=== PATIENT | male | born 1970 | race Caucasian/White ===

== ENCOUNTER 2019-01-18 10:09 | Inpatient (IN) | payer OTHER ==
[2019-01-18 10:34] VITALS: BMI 22.3
--- NOTE | 2019-01-18 10:44 | HP ---
COWS - Scale Resting Pulse: 1= [place] 81-100 Sweatin= Chills/Flushing Restless Observation: 1= Difficult to Sit Still Pupil Size: 1= Pupils >than Normal Bone or Joint Aches: 1= Mild Discomfort Runny Nose/ Eye Tearin= Runny Nose/Eyes GI Upset > 30mins: 2= Nausea/Diarrhea Tremor Observation: 1= Tremor [place], Not Seen Yawning Observation: 1= 1-2x During Session Anxiety or Irritability: 4=Extreme Anxiety Goose Flesh Skin: 3=Piloerection COWS Score: 18 CIWA Score Nausea/Vomitin Muscle Tremors: 4-Moderate,w/Arms Extend Anxiety: 2 Agitation: 4-Moderately Restless Paroxysmal Sweats: 3 Orientation: 0-Oriented Tacttile Disturbances: 3-Moderate Itch/Numb/Burn Auditory Disturbances: 0-None Visual Disturbances: 0-None Headache: 0-None Present CIWA-Ar Total Score: 19 - Admission Criteria OASAS Guidelines: Admission for Medically Managed Detox: Requires at least one of the followin. CIWA greater than 12 2. Seizures within the past 24 hours 3. Delirium tremens within the past 24 hours 4. Hallucinations within the past 24 hours 5. Acute intervention needed for co occurring medical disorder 6. Acute intervention needed for co occurring psychiatric disorder 7. Severe withdrawal that cannot be handled at a lower level of care (continued vomiting, continued diarrhea, abnormal vital signs) requiring intravenous medication and/or fluids 8. Admitting History and Physical - Admission Chief Complaint: "I'm here to live a better life than what I've been living." History of Present Illness: 48 year old male with alcohol dependence and opioid dependence with withdrawals. Patient denies blackout or seizures from withdrawals. Patient is drinking 1 6 pack of beer daily for past 3-6 months, last drank yesterday night. Patient uses 3-4 bags of heroin daily, last used yesterday night Patient moved to [facility] 1 year ago after divorce from in [place] and 3-6 months ago he started abusing drugs. Patient smokes 2ppd since the age 18, last smoked today. Patient occasionally uses marijuana and K2, last used K2 yesterday; last used marijuana 2 weeks ago. PMH: S/P Kidney cancer with Right nephrectomy and Left partial nephrectomy Psurg: Nephrectomy Psych: None, except for PTSD from [place] Lives in [place] housing here in [facility]. No legal issues pending. - Past Surgical History Additional Past Surgical History: nephrectomies see HPI. - Advance Directives Advance Directives: Yes: Living Will, Organ Donor. No: Health Care Proxy, DNR - Smoking History Smoking history: Current every day smoker Have you smoked in the past 12 months: Yes Aproximately how many cigarettes per day: 20 - Alcohol/Substance Use Hx Alcohol Use: Yes (1 6 pack beer daily) Number of Drinks Daily: 10 History of Substance Use: reports: Heroin, Marijuana Date of Last Use: 01/17/19 (marijuana a week ago) - Social History Usual Living Arrangement: Yes: Alone Do you think of yourself as: Straight/Heterosexual ADL: Independent Occupation: not employed at this time History of Recent Travel: No Admission [facility] - HPI Chief Complaint: "I'm here to live a better life than what I've been living." Allergies/Adverse Reactions: Allergies Allergy/AdvReac Type Severity Reaction Status Date / Time No Known Allergies Allergy Verified 01/18/19 10:31 History of Present Illness: 48 year old male with alcohol dependence and opioid dependence with withdrawals. Patient denies blackout or seizures from withdrawals. Patient is drinking 1 6 pack of beer daily for past 3-6 months, last drank yesterday night. Patient uses 3-4 bags of heroin daily, last used yesterday night Patient moved to [facility] 1 year ago after divorce from in [place] and 3-6 months ago he started abusing drugs. Patient smokes 2ppd since the age 18, last smoked today. Patient occasionally uses marijuana and K2, last used K2 yesterday; last used marijuana 2 weeks ago. PMH: S/P Kidney cancer with Right nephrectomy and Left partial nephrectomy Psurg: Nephrectomy Psych: None except for PTSD from [place] here in [facility]. No legal issues pending. - Ebola screening Have you traveled outside of the country in the last 21 days: No Have you had contact with anyone from an Ebola affected area: No Have you been sick,other than usual withdrawal symptoms: No Do you have a fever: No - Review of Systems Constitutional: Diaphoresis, Unintentional Wgt. Loss EENT: reports: Nose Congestion Respiratory: reports: No Symptoms reported Cardiac: reports: No Symptoms Reported, Chest Pain GI: reports: Nausea, Indigestion : reports: No Symptoms Reported Musculoskeletal: reports: No Symptoms Reported Integumentary: reports: No Symptoms Reported Neuro: reports: No Symptoms reported Endocrine: reports: No Symptoms Reported Hematology: reports: No Symptoms Reported Psychiatric: reports: Agitated, Anxious Other Systems: Reviewed and Negative Patient History - Patient Medical History Hx Anemia: No Hx Asthma: No Hx Chronic Obstructive Pulmonary Disease (COPD): No Hx Cancer: Yes (renal adenocarcinoma) Hx Cardiac Disorders: No Hx Congestive Heart Failure: No Hx Hypertension: No Hx Hypercholesterolemia: No Hx Pacemaker: No HX Cerebrovascular Accident: No Hx Seizures: No Hx Dementia: No Hx Diabetes: No Hx Gastrointestinal Disorders: No Hx Liver Disease: No (negative for HCV) Hx Genitourinary Disorders: No Hx Sexually Transmitted Disorders: No Hx Renal Disease (ESRD): Yes (poor function due to nephrectomies and partial left kidney remaining) Hx Thyroid Disease: No Hx Human Immunodeficiency Virus (HIV): No (negative last week) Hx Hepatitis C: No (last tested 1 year ago) Hx Depression: No Hx Suicide Attempt: No Hx Bipolar Disorder: No Hx Schizophrenia: No - Patient Surgical History Past Surgical History: Yes - PPD History Previous Implant?: No Implanted On Prior R Admission?: No PPD to be Administered?: Yes - Smoking Cessation Smoking history: Current every day smoker Have you smoked in the past 12 months: Yes Aproximately how many cigarettes per day: 20 Hx Chewing Tobacco Use: No Initiated information on smoking cessation: Yes 'Breaking Loose' booklet given: 01/18/19 - Substances abused Heroin Substance route: Inhalation Frequency: Daily Amount used: 5 BAGS Age of first use: 47 Date of last use: 01/17/19 Alcohol Substance route: Oral Frequency: Daily Amount used: 12 CANS OF BEER Age of first use: 13 Date of last use: 01/17/19 Admission Physical Exam BHS - Vital Signs Vital Signs: Vital Signs - 24 hr 01/18/19 10:31 Temperature 98.1 F Pulse Rate 82 Respiratory 20 Rate Blood Pressure 136/74 - Physical General Appearance: Yes: Moderate Distress HEENTM: Yes: EOMI, Hearing grossly Normal, Normocephalic, Normal Voice, OC, Pharynx Normal, Tm's normal Respiratory: Yes: Chest Non-Tender, Lungs Clear, Normal Breath Sounds, No Respiratory Distress, No Accessory Muscle Use Neck: Yes: No masses,lesions,Nodules, Supple, Trachea in good position Breast: Yes: Within Normal Limits Cardiology: Yes: Regular Rhythm, Regular Rate, S1, S2 Abdominal: Yes: Normal Bowel Sounds, Non Tender, Flat, Soft Genitourinary: Yes: Within Normal Limits Back: Yes: Normal Inspection Musculoskeletal: Yes: full range of Motion, Gait Steady, Pelvis Stable Extremities: Yes: Normal Capillary Refill, Normal Inspection, Normal Range of Motion, Non-Tender Neurological: Yes: director credit risk II-XII NML intact, Fully Oriented, Alert, Motor Strength 5/5, Normal Response, Depressed Affect Integumentary: Yes: Normal Color, Warm Lymphatic: Yes: Within Normal Limits - Diagnostic (1) PTSD (post-traumatic stress disorder) Current Visit: Yes Status: Acute (2) H/O renal cell cancer Current Visit: Yes Status: Acute Screened but not Admitted - Documentation of Visit Screened but not Admitted: No Inpatient Rehab Admission - Rehab Decision to Admit Inpatient rehab admission?: No
[2019-01-18] MEDS ORDERED: ACETAMINOPHEN 325 MG TABLET (FP) PO PRN ×2 (10:55)
[2019-01-18] MEDS ORDERED: METHOCARBAMOL 500 MG TABLET PO PRN (10:55)
[2019-01-18] MEDS ORDERED: MAGNESIUM CITRATE 300 ML BOTTLE PO PRN (10:55)
[2019-01-18] MEDS ORDERED: MAG HYDROX/AL HYDROX/SIMETH 30 ML UNIT-DOSE CUP PO PRN (10:55)
[2019-01-18] MEDS ORDERED: hydrOXYzine PAMOATE 25 MG CAPSULE (FP) PO PRN (10:55)
[2019-01-18] MEDS ORDERED: MAGNESIUM HYDROX 2400MG/30ML ORAL SUSPENSION 30 ML CUP PO PRN (10:55)
[2019-01-18] MEDS ORDERED: MELATONIN 5 MG TABLETS PO PRN (10:55)
[2019-01-18] MEDS ORDERED: cloNIDine HCL 0.1 MG TABLET PO PRN (10:55)
[2019-01-18] MEDS ORDERED: chlordiazePOXIDE HCL 25 MG CAPSULE PO PRN (10:55)
[2019-01-18] MEDS ORDERED: BISMUTH SUBSALICYLATE 262 MG/15 ML BTL PO PRN (10:55)
[2019-01-18] MEDS ORDERED: MENTHOL/PHENOL 1 EACH UD MM PRN (10:55)
[2019-01-18] MEDS ORDERED: IBUPROFEN 400 MG TABLET (FP) PO PRN (10:55)
[2019-01-18] MEDS ORDERED: METHADONE HCL 10 MG TABLET (FOR DETOX USE ONLY) PO ONE (11:30)
[2019-01-18] MEDS: chlordiazePOXIDE HCL 25 MG CAPSULE PO SCH ×3 (12:00→22:07)
[2019-01-18 13:58] LABS: HEMATOCRIT 40.5 % (35.4-49); HEMOGLOBIN 13.6 GM/dL (11.7-16.9); MCH 30.1 pg (25.7-33.7); MCHC 33.5 g/dl (32.0-35.9); MEAN CELL VOLUME 89.9 fl (80-96); MEAN PLT VOLUME 8.9 fl (7.5-11.1); PLATELET COUNT 199 K/MM3 (134-434); RDW 13.9 % (11.9-15.9); WHITE BLOOD COUNT 5.5 K/mm3 (4.0-10.0)
[2019-01-18 14:21] LABS: ALBUMIN 3.9 g/dl (3.4-5.0); BILIRUBIN,TOTAL 0.3 mg/dL (0.2-1); BLOOD UREA NITROGEN 19.5 mg/dL (7-18); CALCIUM 9.2 mg/dL (8.5-10.1); CREATININE 1.2 mg/dL (0.55-1.3); POTASSIUM 3.5 mmol/L (3.5-5.1); TOT PROT 6.8 g/dl (6.4-8.2)
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
[2019-01-18] MEDS: NICOTINE POLACRILEX 4 MG GUM BUC PRN (19:21)
[2019-01-18] MEDS: QUEtiapine FUMARATE 300 MG TABLET PO SCH (22:06)
[2019-01-18] MEDS: THIAMINE HCL 100 MG TABLET (FP) PO SCH (22:06)
[2019-01-19] MEDS: chlordiazePOXIDE HCL 25 MG CAPSULE PO SCH ×4 (06:24→22:05)
[2019-01-19] MEDS ORDERED: METHADONE HCL 10 MG TABLET (FOR DETOX USE ONLY) ONE (09:10)
[2019-01-19] MEDS ORDERED: METHADONE HCL 5 MG TABLET (FOR DETOX USE ONLY) ONE (09:10)
[2019-01-19] MEDS ORDERED: METHADONE (DETOX) 20 MG, METHADONE (DETOX) 5 MG PO ONE (10:00)
[2019-01-19] MEDS: NICOTINE 14 MG/24 HOURS TOPICAL PATCH TD SCH (10:37)
[2019-01-19] MEDS: NICOTINE POLACRILEX 4 MG GUM BUC PRN ×4 (10:37→20:49)
[2019-01-19] MEDS: PRENATAL VITAMINS W/ FOLIC ACID TABLET (FP) PO SCH (10:37)
[2019-01-19] MEDS ORDERED: FLU VACCINE QUAD 60 MCG/0.5 ML (MDV 19-20) IM ONE (12:00)
--- NOTE | 2019-01-19 14:19 | PN ---
[facility] CIWA - CIWA Score Nausea/Vomitin-No Nausea/No Vomiting Muscle Tremors: 3 Anxiety: 4-Mod. Anxious/Guarded Agitation: 4-Moderately Restless Paroxysmal Sweats: 3 Orientation: 0-Oriented Tacttile Disturbances: 0-None Auditory Disturbances: 0-None Visual Disturbances: 0-None Headache: 0-None Present CIWA-Ar Total Score: 14 S COWS - Scale Resting Pulse: 0= ID 80 or Below Sweatin= Chills/Flushing Restless Observation: 1= Difficult to Sit Still Pupil Size: 0= Normal to Room Light Bone or Joint Aches: 2= Severe Diffuse Aches Runny Nose/ Eye Tearin= Runny Nose/Eyes GI Upset > 30mins: 0= None Tremor Observation of Outstretched Hands: 2= Slight Tremor Visible Yawning Observation: 2= >3x During Session Anxiety or Irritability: 2=Irritable/Anxious Goose Flesh Skin: 0=Smooth Skin COWS Score: 12 S Progress Note (SOAP) Subjective: agitation restless anxiety sweats irritable interrupted sleep Objective: 01/19/19 14:18 Vital Signs Temperature 97.7 F 01/19/19 06:39 Pulse Rate 61 01/19/19 06:39 Respiratory Rate 18 01/19/19 06:39 Blood Pressure 94/62 01/19/19 06:39 O2 Sat by Pulse Oximetry (%) Laboratory Tests 01/18/19 01/18/19 01/18/19 11:00 11:00 11:30 WBC RBC Hgb Hct MCV MCH MCHC RDW Plt Count MPV Sodium 143 Potassium 3.5 Chloride 107 Carbon Dioxide 29 Anion Gap 7 L BUN 19.5 H Creatinine 1.2 Est GFR (CKD-EPI)AfAm 81.80 Est GFR (CKD-EPI)NonAf 70.58 Random Glucose 115 H Calcium 9.2 Total Bilirubin 0.3 AST 12 L ALT 16 Alkaline Phosphatase 64 Total Protein 6.8 Albumin 3.9 RPR Titer Nonreactive HIV 1&2 Antibody Screen Negative HIV P24 Antigen Negative 01/18/19 11:30 WBC 5.5 RBC 4.50 Hgb 13.6 Hct 40.5 MCV 89.9 MCH 30.1 MCHC 33.5 RDW 13.9 Plt Count 199 MPV 8.9 Sodium Potassium Chloride Carbon Dioxide Anion Gap BUN Creatinine Est GFR (CKD-EPI)AfAm Est GFR (CKD-EPI)NonAf Random Glucose Calcium Total Bilirubin AST ALT Alkaline Phosphatase Total Protein Albumin RPR Titer HIV 1&2 Antibody Screen HIV P24 Antigen labs noted aaox3 ambulating no acute distress Assessment: 01/19/19 14:19 withdrawals Plan: continue detox increase fluids
[2019-01-19] MEDS: THIAMINE HCL 100 MG TABLET (FP) PO SCH (22:06)
[2019-01-19] MEDS: QUEtiapine FUMARATE 300 MG TABLET PO SCH (22:06)
[2019-01-20] MEDS ORDERED: chlordiazePOXIDE HCL 25 MG CAPSULE PO SCH (05:00)
[2019-01-20] MEDS ORDERED: diazePAM 5 MG TABLET PO PRN (09:37)
--- NOTE | 2019-01-20 09:49 | PN ---
[facility] CIWA - CIWA Score Nausea/Vomitin-Mild Nausea/No Vomiting Muscle Tremors: 2 Anxiety: 2 Agitation: 2 Paroxysmal Sweats: No Perspiration Orientation: 0-Oriented Tacttile Disturbances: 1-Very Mild Itch/Numbness Auditory Disturbances: 0-None Visual Disturbances: 0-None Headache: 2-Mild CIWA-Ar Total Score: 10 S Progress Note (SOAP) Subjective: alert,irritable,anxious,interrupted sleep,tremor,pain in the body and back Objective: 01/20/19 09:44 Vital Signs Temperature 97.1 F L 01/20/19 09:12 Pulse Rate 69 01/20/19 09:12 Respiratory Rate 16 01/20/19 09:12 Blood Pressure 99/57 L 01/20/19 09:12 O2 Sat by Pulse Oximetry (%) 01/20/19 09:45 Laboratory Last Values WBC 5.5 K/mm3 (4.0-10.0) 01/18/19 11:30 RBC 4.50 M/mm3 (4.00-5.60) 01/18/19 11:30 Hgb 13.6 GM/dL (11.7-16.9) 01/18/19 11:30 Hct 40.5 % (35.4-49) 01/18/19 11:30 MCV 89.9 fl (80-96) 01/18/19 11:30 MCH 30.1 pg (25.7-33.7) 01/18/19 11:30 MCHC 33.5 g/dl (32.0-35.9) 01/18/19 11:30 RDW 13.9 % (11.9-15.9) 01/18/19 11:30 Plt Count 199 K/MM3 (134-434) 01/18/19 11:30 MPV 8.9 fl (7.5-11.1) 01/18/19 11:30 Sodium 143 mmol/L (136-145) 01/18/19 11:00 Potassium 3.5 mmol/L (3.5-5.1) 01/18/19 11:00 Chloride 107 mmol/L (98-107) 01/18/19 11:00 Carbon Dioxide 29 mmol/L (21-32) 01/18/19 11:00 Anion Gap 7 MMOL/L (8-16) L 01/18/19 11:00 BUN 19.5 mg/dL (7-18) H 01/18/19 11:00 Creatinine 1.2 mg/dL (0.55-1.3) 01/18/19 11:00 Est GFR (CKD-EPI)AfAm 81.80 01/18/19 11:00 Est GFR (CKD-EPI)NonAf 70.58 01/18/19 11:00 Random Glucose 115 mg/dL (74-106) H 01/18/19 11:00 Calcium 9.2 mg/dL (8.5-10.1) 01/18/19 11:00 Total Bilirubin 0.3 mg/dL (0.2-1) 01/18/19 11:00 AST 12 U/L (15-37) L 01/18/19 11:00 ALT 16 U/L (13-61) 01/18/19 11:00 Alkaline Phosphatase 64 U/L (45-117) 01/18/19 11:00 Total Protein 6.8 g/dl (6.4-8.2) 01/18/19 11:00 Albumin 3.9 g/dl (3.4-5.0) 01/18/19 11:00 RPR Titer Nonreactive (NONREACTIVE) 01/18/19 11:00 HIV 1&2 Antibody Screen Negative 01/18/19 11:30 HIV P24 Antigen Negative 01/18/19 11:30 Assessment: 01/20/19 09:48 withdrawal symptom Plan: continue detox ,patient would like regimen to change from methadone and librium to methadone and valium, bun 19.5,creatine 1.2,glucose 115,will repeat fasting glucose and bmp in am
[2019-01-20] MEDS ORDERED: METHADONE HCL 10 MG TABLET (FOR DETOX USE ONLY) PO ONE (10:00)
[2019-01-20] MEDS: PRENATAL VITAMINS W/ FOLIC ACID TABLET (FP) PO SCH (10:21)
[2019-01-20] MEDS: NICOTINE 14 MG/24 HOURS TOPICAL PATCH TD SCH (10:22)
[2019-01-20] MEDS: NICOTINE POLACRILEX 4 MG GUM BUC PRN ×2 (10:22→16:46)
[2019-01-20] MEDS: diazePAM 5 MG TABLET PO SCH ×2 (13:37→21:07)
[2019-01-20] MEDS: THIAMINE HCL 100 MG TABLET (FP) PO SCH (21:07)
[2019-01-20] MEDS: QUEtiapine FUMARATE 300 MG TABLET PO SCH (21:08)
[2019-01-21] MEDS ORDERED: chlordiazePOXIDE HCL 10 MG CAPSULE PO PRN
[2019-01-21] MEDS ORDERED: chlordiazePOXIDE HCL 10 MG CAPSULE PO SCH (05:00)
[2019-01-21] MEDS: diazePAM 5 MG TABLET PO SCH ×3 (06:03→22:43)
[2019-01-21] MEDS ORDERED: METHADONE HCL 10 MG TABLET (FOR DETOX USE ONLY) ONE (08:54)
[2019-01-21] MEDS ORDERED: METHADONE HCL 5 MG TABLET (FOR DETOX USE ONLY) ONE (08:54)
[2019-01-21] MEDS: NICOTINE POLACRILEX 4 MG GUM BUC PRN (09:45)
[2019-01-21] MEDS: NICOTINE 14 MG/24 HOURS TOPICAL PATCH TD SCH (09:45)
[2019-01-21] MEDS: PRENATAL VITAMINS W/ FOLIC ACID TABLET (FP) PO SCH (09:46)
[2019-01-21] MEDS ORDERED: METHADONE (DETOX) 10 MG, METHADONE (DETOX) 5 MG PO ONE (10:00)
[2019-01-21 10:14] LABS: BLOOD UREA NITROGEN 23.5 mg/dL (7-18); CALCIUM 9.2 mg/dL (8.5-10.1); CREATININE 1.1 mg/dL (0.55-1.3); POTASSIUM 4.2 mmol/L (3.5-5.1)
--- NOTE | 2019-01-21 11:14 | PN ---
[facility] CIWA - CIWA Score Nausea/Vomitin-Mild Nausea/No Vomiting Muscle Tremors: 1-None Visible, but [place] Anxiety: 2 Agitation: 2 Paroxysmal Sweats: No Perspiration Orientation: 0-Oriented Tacttile Disturbances: 1-Very Mild Itch/Numbness Auditory Disturbances: 0-None Visual Disturbances: 0-None Headache: 1-Very Mild CIWA-Ar Total Score: 8 [facility]HS COWS - Scale Resting Pulse: 0= [place] 80 or Below Sweatin= No chills or Flushing Restless Observation: 1= Difficult to Sit Still Pupil Size: 1= Pupils >than Normal Bone or Joint Aches: 1= Mild Discomfort Runny Nose/ Eye Tearin= Nasal Congestion GI Upset > 30mins: 1= Stomach Cramp Tremor Observation of Outstretched Hands: 1= Tremor [place], Not Seen Yawning Observation: 1= 1-2x During Session Anxiety or Irritability: 2=Irritable/Anxious Goose Flesh Skin: 0=Smooth Skin COWS Score: 9 [facility] Progress Note (SOAP) Subjective: alert,irritable,anxious,interrupted sleep,pain in the body Objective: 01/21/19 11:12 Vital Signs Temperature 97.2 F L 01/20/19 21:41 Pulse Rate 68 01/21/19 09:41 Respiratory Rate 18 01/21/19 09:41 Blood Pressure 124/67 01/21/19 09:41 O2 Sat by Pulse Oximetry (%) Laboratory Results - last 24 hr 01/21/19 08:15 Sodium 139 Potassium 4.2 Chloride 103 Carbon Dioxide 32 Anion Gap 4 L BUN 23.5 H Creatinine 1.1 Est GFR (CKD-EPI)AfAm 90.88 Est GFR (CKD-EPI)NonAf 78.41 Random Glucose 93 Calcium 9.2 Assessment: 01/21/19 11:13 withdrawal symptom Plan: continue detox methadone and valium regimen,bun 23.5,renal insufficiency history of renal cell carcinoma,history of right nephrectomy and partial left nephrectomy,renal insufficiency follow with pmd and re recording mixer
[2019-01-21 17:21] VITALS: PULSE 59
[2019-01-21] MEDS: THIAMINE HCL 100 MG TABLET (FP) PO SCH (22:43)
[2019-01-21] MEDS: QUEtiapine FUMARATE 300 MG TABLET PO SCH (22:43)
[2019-01-22] MEDS ORDERED: chlordiazePOXIDE HCL 10 MG CAPSULE PO SCH (05:00)
[2019-01-22] MEDS: NICOTINE POLACRILEX 4 MG GUM BUC PRN (05:16)
[2019-01-22] MEDS ORDERED: diazePAM 5 MG TABLET PO SCH (06:00)
[2019-01-22 06:36] VITALS: BP 115/83; TEMP 97.3
--- NOTE | 2019-01-22 07:39 | DS ---
[facility] Detox Discharge Summary Admission Date: 01/18/19 Discharge Date: 01/22/19 - History Present History: Alcohol Dependence, Opioid Dependence - Physical Exam Results Vital Signs: Vital Signs Temperature 97.3 F L 01/22/19 06:00 Pulse Rate 59 L 01/22/19 06:00 Respiratory Rate 18 01/22/19 06:00 Blood Pressure 115/83 01/22/19 06:00 O2 Sat by Pulse Oximetry (%) Pertinent Admission Physical Exam Findings: Vital Signs - 24 hr 01/21/19 01/21/19 01/21/19 09:41 13:12 17:20 Temperature 98.2 F 97.9 F Pulse Rate 68 65 59 L Respiratory 18 18 18 Rate Blood Pressure 124/67 134/89 115/73 01/21/19 01/22/19 21:23 06:00 Temperature 98.0 F 97.3 F L Pulse Rate 59 L 59 L Respiratory 18 18 Rate Blood Pressure 106/61 115/83 Laboratory Tests 01/18/19 01/18/19 01/18/19 11:00 11:00 11:30 WBC RBC Hgb Hct MCV MCH MCHC RDW Plt Count MPV Sodium 143 Potassium 3.5 Chloride 107 Carbon Dioxide 29 Anion Gap 7 L BUN 19.5 H Creatinine 1.2 Est GFR (CKD-EPI)AfAm 81.80 Est GFR (CKD-EPI)NonAf 70.58 Random Glucose 115 H Calcium 9.2 Total Bilirubin 0.3 AST 12 L ALT 16 Alkaline Phosphatase 64 Total Protein 6.8 Albumin 3.9 RPR Titer Nonreactive HIV 1&2 Antibody Screen Negative HIV P24 Antigen Negative 01/18/19 01/21/19 11:30 08:15 WBC 5.5 RBC 4.50 Hgb 13.6 Hct 40.5 MCV 89.9 MCH 30.1 MCHC 33.5 RDW 13.9 Plt Count 199 MPV 8.9 Sodium 139 Potassium 4.2 Chloride 103 Carbon Dioxide 32 Anion Gap 4 L BUN 23.5 H Creatinine 1.1 Est GFR (CKD-EPI)AfAm 90.88 Est GFR (CKD-EPI)NonAf 78.41 Random Glucose 93 Calcium 9.2 Total Bilirubin AST ALT Alkaline Phosphatase Total Protein Albumin RPR Titer HIV 1&2 Antibody Screen HIV P24 Antigen - Treatment Hospital Course: Detoxed Safely - Medication Discharge Medications: Ambulatory Orders NK [No Known Home Medication] 01/18/19 - AMA Did Patient Leave Against Medical Advice: No (taper discontinued 1 day early - pt had dc arrangements per tool analyst, rn)
[2019-01-22] MEDS ORDERED: METHADONE HCL 10 MG TABLET (FOR DETOX USE ONLY) PO ONE (10:00)
[2019-01-23] MEDS ORDERED: chlordiazePOXIDE HCL 10 MG CAPSULE PO ONE (05:00)
[2019-01-23] MEDS ORDERED: METHADONE HCL 5 MG TABLET (FOR DETOX USE ONLY) PO ONE (06:00)
[2019-01-23] MEDS ORDERED: diazePAM 5 MG TABLET PO ONE (06:00)
== END 2019-01-22 07:39 | disposition home or self-care (01) | DRG 773 ==
LOC: YASAS 10:09 → Y6N 11:04
PROVIDERS: ADMIT Allergy & Immunology; ATTEND Allergy & Immunology
PROC: HZ2ZZZZ Detoxification Services for Substance Abuse Treatment (ICD-10-PCS; principal; 2019-01-18)
DX: F10.230 Alcohol dependence with withdrawal, uncomplicated (principal); F11.23 Opioid dependence with withdrawal; F12.10 Cannabis abuse, uncomplicated; F17.210 Nicotine dependence, cigarettes, uncomplicated; F19.280 Other psychoactive substance dependence with psychoactive substance-induced anxiety disorder; F90.9 Attention-deficit hyperactivity disorder, unspecified type; F43.10 Post-traumatic stress disorder, unspecified; N28.9 Disorder of kidney and ureter, unspecified; Z85.528 Personal history of other malignant neoplasm of kidney; Z90.5 Acquired absence of kidney; Z91.5 Personal history of self-harm
CPT/HCPCS: 36415; 80048; 80053; 85027; 86593; 87389

== ENCOUNTER 2019-12-17 12:04 | Inpatient (IN) | payer OTHER ==
--- NOTE | 2019-12-17 14:41 | BHS.RME ---
Substance Use & Tx History - Substance Use History Alcohol Substance amount: 6-12 pack of 24 ounce beer Frequency of use: Daily Substance route: Oral, Vaping (t) Heroin Substance amount: 5-10 bags Frequency of use: Daily Substance route: Inhalation (ex: sniffing or snorting) Date of Last Use: 12/16/19 Nicotine Substance amount: one pack Frequency of use: Daily Substance route: Smoking Date of Last Use: 12/17/19 - Last Treatment Date of last treatment: December 2018 Treatment type: Substance Use Disorder ([place]) Where was last treatment: Detox Physical/Psych/Mental Status - Behavior General Behavior: Increased activity (restlessness, agitation) Eye Contact: Normal - Cooperativeness Cooperativeness: Cooperative - Thinking Thought Processes: Tight Thought content: Future oriented - Physical Health Problems Is patient presently having any pain?: No Does patient presently have any injuries (include location): No Does patient currently have a fever: No CIWA Nausea/Vomitin Muscle Tremors: 3 Anxiety: 4-Mod. Anxious/Guarded Agitation: 3 Paroxysmal Sweats: No Perspiration Orientation: 0-Oriented Tacttile Disturbances: 0-None Auditory Disturbances: 0-None Visual Disturbances: 0-None Headache: 0-None Present CIWA-Ar Total Score: 12
--- NOTE | 2019-12-17 15:10 | HP ---
COWS - Scale Resting Pulse: 0= MN 80 or Below Sweatin= Chills/Flushing Restless Observation: 1= Difficult to Sit Still Pupil Size: 1= Pupils >than Normal Bone or Joint Aches: 2= Severe Diffuse Aches Runny Nose/ Eye Tearin= Runny Nose/Eyes GI Upset > 30mins: 3= Vomiting/Diarrhea Tremor Observation: 1= Tremor Eighty Eight, Not Seen Yawning Observation: 0= None Anxiety or Irritability: 1=Feels Anxious/Irritable Goose Flesh Skin: 0=Smooth Skin COWS Score: 12 CIWA Score Nausea/Vomitin Muscle Tremors: 3 Anxiety: 4-Mod. Anxious/Guarded Agitation: 3 Paroxysmal Sweats: No Perspiration Orientation: 0-Oriented Tacttile Disturbances: 0-None Auditory Disturbances: 0-None Visual Disturbances: 0-None Headache: 0-None Present CIWA-Ar Total Score: 12 - Admission Criteria OASAS Guidelines: Admission for Medically Managed Detox: Requires at least one of the followin. CIWA greater than 12 2. Seizures within the past 24 hours 3. Delirium tremens within the past 24 hours 4. Hallucinations within the past 24 hours 5. Acute intervention needed for co occurring medical disorder 6. Acute intervention needed for co occurring psychiatric disorder 7. Severe withdrawal that cannot be handled at a lower level of care (continued vomiting, continued diarrhea, abnormal vital signs) requiring intravenous medication and/or fluids 8. Admitting History and Physical - Admission History of Present Illness: Patient is a 49 y.o. M PMHx RCC, HIV presenting to [facility] for detox. 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 Heroin 5-10 bags a day intranasal 1 overdose 4 years ago. 1 pack of cigarettes a day. 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 Cardiovascular: No: HTN, Hyperlipdemia Pulmonary: No: Asthma, COPD Gastrointestinal: No: GERD, GI Bleed Hepatobiliary: No: Hepatitis A, Hepatitis B, Hepatitis C Renal/: Yes: Cancer (RCC) Infectious Disease: Yes: HIV - Past Surgical History Past Surgical History: Yes: Nephrectomy - Smoking History Smoking history: Current every day smoker Have you smoked in the past 12 months: Yes Aproximately how many cigarettes per day: 40 - Alcohol/Substance Use Hx Alcohol Use: Yes (1 6 pack beer daily) Number of Drinks Daily: 10 History of Substance Use: reports: Heroin, Marijuana Date of Last Use: 01/17/19 (marijuana a week ago) - Social History Usual Living Arrangement: Yes: Alone ADL: Independent Occupation: not employed at this time History of Recent Travel: No Admission ROS [facility] - [facility] Allergies/Adverse Reactions: Allergies Allergy/AdvReac Type Severity Reaction Status Date / Time No Known Allergies Allergy Verified 12/17/19 15:42 Exam Limitations: No Limitations - Ebola screening Have you traveled outside of the country in the last 21 days: No Have you had contact with anyone from an Ebola affected area: No Have you been sick,other than usual withdrawal symptoms: No Do you have a fever: No - Review of Systems Constitutional: No Symptoms Reported Respiratory: denies: Cough, Shortness of Breath Cardiac: denies: Chest Pain, Lightheadedness GI: reports: Nausea, Vomiting. denies: Constipated, Diarrhea : reports: Burning. denies: Dysuria Musculoskeletal: reports: Muscle Pain. denies: Muscle Weakness Neuro: denies: Headache, Seizure, Dizziness Hematology: denies: Blood Clots Psychiatric: reports: No Sypmtoms Reported, Judgement Intact, Mood/Affect Appropiate, Orientated x3 Patient History - Patient Medical History Hx Anemia: No Hx Asthma: No Hx Chronic Obstructive Pulmonary Disease (COPD): No Hx Cancer: Yes (renal adenocarcinoma) Hx Cardiac Disorders: No Hx Congestive Heart Failure: No Hx Hypertension: No Hx Hypercholesterolemia: No Hx Pacemaker: No HX Cerebrovascular Accident: No Hx Seizures: No Hx Dementia: No Hx Diabetes: No Hx Gastrointestinal Disorders: No Hx Liver Disease: No (negative for HCV) Hx Genitourinary Disorders: No Hx Sexually Transmitted Disorders: No Hx Renal Disease (ESRD): Yes (poor function due to nephrectomies and partial left kidney remaining) Hx Thyroid Disease: No Hx Human Immunodeficiency Virus (HIV): No (negative last week) Hx Hepatitis C: No (last tested 1 year ago) Hx Depression: No Hx Suicide Attempt: No Hx Bipolar Disorder: No Hx Schizophrenia: No - Patient Surgical History Past Surgical History: Yes Hx Neurologic Surgery: No Hx Cataract Extraction: No Hx Cardiac Surgery: No Hx Lung Surgery: No Hx Breast Surgery: No Hx Breast Biopsy: No Hx Abdominal Surgery: No Hx Appendectomy: No Hx Cholecystectomy: No Hx Genitourinary Surgery: No Hx Section: No Hx Orthopedic Surgery: Yes (REMOVAL OF RIGHT KIDNEY AND PARTIAL LEFT KIDNEY FROM KIDNEY CANCER) Anesthesia Reaction: No - PPD History Date: 01/20/19 - Smoking Cessation Smoking history: Current every day smoker Have you smoked in the past 12 months: Yes Aproximately how many cigarettes per day: 40 Hx Chewing Tobacco Use: No Initiated information on smoking cessation: Yes 'Breaking Loose' booklet given: 12/17/19 Admission Physical Exam [facility] - Physical General Appearance: Yes: Within Normal Limits Respiratory: Yes: Within Normal Limits, Lungs Clear, Normal Breath Sounds, No Respiratory Distress, No Accessory Muscle Use Cardiology: Yes: Within Normal Limits, Regular Rhythm, Regular Rate Abdominal: Yes: Within Normal Limits, Normal Bowel Sounds, Flat, Soft, Tenderness Back: Yes: Within Normal Limits, Normal Inspection Musculoskeletal: Yes: Within Normal Limits, full range of Motion, Gait Steady, Pelvis Stable Extremities: Yes: Within Normal Limits, Normal Inspection, Normal Range of Motion, Non-Tender Neurological: Yes: Within Normal Limits, Fully Oriented, Alert, Normal Mood/Affect, Normal Response Integumentary: Yes: Within Normal Limits, Normal Color, Dry, Warm - Diagnostic (1) Uncomplicated alcohol dependence Current Visit: No Status: Acute (2) Uncomplicated opioid dependence Current Visit: No Status: Acute (3) PTSD (post-traumatic stress disorder) Current Visit: No Status: Chronic (4) H/O renal cell cancer Current Visit: No Status: Resolved Cleared for Admission [facility] - Detox or Rehab [facility] Level of Care: Medically Managed Detox Regimen/Protocol: Christophium Claeared for Rehab Admission: No Breathalyzer - Breathalyzer Breathalyzer: 0 Vital Signs - Vital Signs Vital signs refused: No Temperature: 97.4 F Pulse Rate: 57 Respiratory Rate: 12 Blood Pressure: 94/63 - Height Height: 1.8 m - Weight Weight: 69.4 kg - BMI Body Mass Index (BMI): 21.3 Urine Drug Screen - Test Device Lot number: [id number] Expiration date: 08/28/20 - Control Is test valid?: No - Results Drug screen NEGATIVE: No Urine drug screen results: FEN-Fentanyl, MOP-Opiates, OXY-Oxycodone, MTD- Methadone, BZO-Benzodiazepines Inpatient Rehab Admission - Rehab Decision to Admit Inpatient rehab admission?: No
[2019-12-17 15:16] VITALS: BMI 21.3
[2019-12-17] MEDS ORDERED: METHOCARBAMOL 500 MG TABLET PO PRN (15:21)
[2019-12-17] MEDS ORDERED: IBUPROFEN 400 MG TABLET (FP) PO PRN (15:21)
[2019-12-17] MEDS ORDERED: MAGNESIUM CITRATE 300 ML BOTTLE PO PRN (15:21)
[2019-12-17] MEDS ORDERED: ONDANSETRON *ODT* 4 MG TABLET SL PRN (15:21)
[2019-12-17] MEDS ORDERED: ACETAMINOPHEN 325 MG TABLET (FP) PO PRN ×2 (15:21)
[2019-12-17] MEDS ORDERED: MAGNESIUM HYDROX 2400MG/30ML ORAL SUSPENSION 30 ML CUP PO PRN (15:21)
[2019-12-17] MEDS ORDERED: MENTHOL/PHENOL 1 EACH UD MM PRN (15:21)
[2019-12-17] MEDS ORDERED: chlordiazePOXIDE HCL 25 MG CAPSULE PO PRN (15:21)
[2019-12-17] MEDS ORDERED: MAG HYDROX/AL HYDROX/SIMETH 30 ML UNIT-DOSE CUP PO PRN (15:21)
[2019-12-17] MEDS ORDERED: BISMUTH SUBSALICYLATE 524 MG/30 ML UD PO PRN (15:21)
[2019-12-17] MEDS ORDERED: METHADONE HCL 10 MG TABLET (FOR DETOX USE ONLY) PO ONE (15:49)
--- NOTE | 2019-12-17 15:51 | PN ---
[facility] Progress Note Note: Unable to verify home methadone dose. Gave one time methadone dose of 40mg. Staff will try to verify again in the morning.
[2019-12-17] MEDS ORDERED: METHADONE HCL 40 MG DISPERSABLE TABLET PO ONE (17:45)
[2019-12-17] MEDS: hydrOXYzine PAMOATE 25 MG CAPSULE (FP) PO SCH ×2 (17:45→22:46)
[2019-12-17] MEDS: chlordiazePOXIDE HCL 25 MG CAPSULE PO SCH ×2 (17:45→22:47)
[2019-12-17] MEDS: NICOTINE POLACRILEX 2 MG GUM BUC PRN (17:49)
[2019-12-17] MEDS: THIAMINE HCL 100 MG TABLET (FP) PO SCH (22:46)
[2019-12-17] MEDS: MELATONIN 5 MG TABLETS PO SCH (22:46)
[2019-12-18] MEDS: hydrOXYzine PAMOATE 25 MG CAPSULE (FP) PO SCH ×5 (05:46→22:43)
[2019-12-18] MEDS: chlordiazePOXIDE HCL 25 MG CAPSULE PO SCH ×4 (05:46→23:10)
[2019-12-18] MEDS: NICOTINE POLACRILEX 2 MG GUM BUC PRN ×4 (05:48→17:42)
--- NOTE | 2019-12-18 09:04 | EKG ---
Test Reason : Blood Pressure : / mmHG Vent. Rate : 048 BPM Atrial Rate : 048 BPM P-R Int : 152 ms QRS Dur : 090 ms QT Int : 480 ms P-R-T Axes : 056 041 040 degrees QTc Int : 428 ms SINUS BRADYCARDIA OTHERWISE NORMAL ECG NO PREVIOUS ECGS AVAILABLE Confirmed by Rosenda Hobbs ([id number]) on 12/18/2019 9:04:14 AM Referred By: Confirmed By:Rosenda Hobbs
[2019-12-18 09:21] LABS: HEMATOCRIT 43.6 % (35.4-49); HEMOGLOBIN 14.6 GM/dL (11.7-16.9); MCH 30.4 pg (25.7-33.7); MCHC 33.4 g/dl (32.0-35.9); MEAN PLT VOLUME 9.4 fl (7.5-11.1); PLATELET COUNT 186 K/MM3 (134-434); RDW 13.3 % (11.9-15.9); WHITE BLOOD COUNT 7.2 K/mm3 (4.0-10.0)
[2019-12-18 09:23] LABS: BILIRUBIN,TOTAL 0.5 mg/dL (0.2-1); BLOOD UREA NITROGEN 22.8 mg/dL (7-18); CALCIUM 9.2 mg/dL (8.5-10.1); CREATININE 1.2 mg/dL (0.55-1.3); POTASSIUM 4.8 mmol/L (3.5-5.1)
[2019-12-18] MEDS: PRENATAL VITAMINS W/ FOLIC ACID TABLET (FP) PO SCH (11:04)
[2019-12-18] MEDS: NICOTINE 7 MG/24 HOURS TOPICAL PATCH TD SCH (11:04)
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
[2019-12-18] MEDS ORDERED: METHADONE HCL 40 MG DISPERSABLE TABLET PO SCH (12:00)
--- NOTE | 2019-12-18 12:04 | PN ---
S CIWA - CIWA Score Nausea/Vomitin-No Nausea/No Vomiting Muscle Tremors: 2 Anxiety: 3 Agitation: 0-Normal Activity Paroxysmal Sweats: 3 Orientation: 0-Oriented Tacttile Disturbances: 0-None Auditory Disturbances: 0-None Visual Disturbances: 0-None Headache: 2-Mild CIWA-Ar Total Score: 10 [facility] Progress Note (SOAP) Subjective: c/o anxiety, sweats, headache, and shakes. Objective: 12/18/19 12:04 Vital Signs 12/18/19 12/18/19 06:40 08:38 Temperature 97.7 F 97.3 F L Pulse Rate 63 76 Respiratory 18 16 Rate Blood Pressure 121/80 107/63 O2 Sat by Pulse 97 97 Oximetry (%) Laboratory Last Values WBC 7.2 K/mm3 (4.0-10.0) 12/18/19 07:45 RBC 4.80 M/mm3 (4.00-5.60) 12/18/19 07:45 Hgb 14.6 GM/dL (11.7-16.9) 12/18/19 07:45 Hct 43.6 % (35.4-49) 12/18/19 07:45 MCV 91.0 fl (80-96) 12/18/19 07:45 MCH 30.4 pg (25.7-33.7) 12/18/19 07:45 MCHC 33.4 g/dl (32.0-35.9) 12/18/19 07:45 RDW 13.3 % (11.9-15.9) 12/18/19 07:45 Plt Count 186 K/MM3 (134-434) 12/18/19 07:45 MPV 9.4 fl (7.5-11.1) 12/18/19 07:45 Sodium 138 mmol/L (136-145) 12/18/19 07:45 Potassium 4.8 mmol/L (3.5-5.1) 12/18/19 07:45 Chloride 102 mmol/L (98-107) 12/18/19 07:45 Carbon Dioxide 35 mmol/L (21-32) H 12/18/19 07:45 Anion Gap 2 MMOL/L (8-16) L 12/18/19 07:45 BUN 22.8 mg/dL (7-18) H 12/18/19 07:45 Creatinine 1.2 mg/dL (0.55-1.3) 12/18/19 07:45 Est GFR (CKD-EPI)AfAm 81.23 12/18/19 07:45 Est GFR (CKD-EPI)NonAf 70.09 12/18/19 07:45 Random Glucose 72 mg/dL (74-106) L 12/18/19 07:45 Calcium 9.2 mg/dL (8.5-10.1) 12/18/19 07:45 Total Bilirubin 0.5 mg/dL (0.2-1) 12/18/19 07:45 AST 23 U/L (15-37) 12/18/19 07:45 ALT 25 U/L (13-61) 12/18/19 07:45 Alkaline Phosphatase 86 U/L (45-117) 12/18/19 07:45 Total Protein 7.0 g/dl (6.4-8.2) 12/18/19 07:45 Albumin 4.0 g/dl (3.4-5.0) 12/18/19 07:45 Labs noted. Assessment: 12/18/19 12:04 AOX3, in no acute respiratory distress. Full ROM, ambulating in the unit. Withdrawal symptoms. Plan: continue detox.
[2019-12-18] MEDS ORDERED: METHADONE HCL 10 MG TABLET ONE (13:07)
[2019-12-18] MEDS ORDERED: METHADONE HCL 40 MG DISPERSABLE TABLET ONE (13:08)
[2019-12-18] MEDS: METHADONE 80 MG, METHADONE 20 MG PO SCH (13:08)
[2019-12-18] MEDS ORDERED: PNEUMOC 13-VAL CONJ-DIP CRM/PF 0.5 ML DISP.SYRIN IM ONE (16:00)
[2019-12-18] MEDS: MELATONIN 5 MG TABLETS PO SCH (22:43)
[2019-12-18] MEDS: THIAMINE HCL 100 MG TABLET (FP) PO SCH (22:43)
[2019-12-19] MEDS ORDERED: METHADONE HCL 10 MG TABLET ONE (04:46)
[2019-12-19] MEDS ORDERED: METHADONE HCL 40 MG DISPERSABLE TABLET ONE (04:46)
[2019-12-19] MEDS: hydrOXYzine PAMOATE 25 MG CAPSULE (FP) PO SCH ×2 (05:58→10:16)
[2019-12-19] MEDS: METHADONE 80 MG, METHADONE 20 MG PO SCH (05:58)
[2019-12-19] MEDS: chlordiazePOXIDE HCL 25 MG CAPSULE PO SCH ×2 (06:01→10:16)
--- NOTE | 2019-12-19 09:21 | PN ---
S CIWA - CIWA Score Nausea/Vomitin-No Nausea/No Vomiting Muscle Tremors: 1-None Visible, but [place] Anxiety: 3 Agitation: 0-Normal Activity Paroxysmal Sweats: No Perspiration Orientation: 0-Oriented Tacttile Disturbances: 0-None Auditory Disturbances: 0-None Visual Disturbances: 1-Very Mild Sensitivity Headache: 1-Very Mild CIWA-Ar Total Score: 6 [facility] Progress Note (SOAP) Subjective: 49 years old male was admitted on 12/17/19 for alcohol withdrawal sx management treating with librium detox regiment feels better today prefers to leave tomorrow appointment with [facility] 12 pm alert oriented x 3 speech clearly coherently ambulating steady gaits resume methadone 100mg po daily mr manuel tolerated well Objective: 12/19/19 09:20 Vital Signs - 24 hr 12/18/19 12/18/19 12/18/19 13:39 16:58 20:32 Temperature 98.4 F 96.9 F L 97.3 F L Pulse Rate 71 57 L 58 L Respiratory 18 18 16 Rate Blood Pressure 126/67 114/76 96/64 O2 Sat by Pulse 99 99 Oximetry (%) 12/19/19 12/19/19 06:35 06:36 Temperature 97.9 F Pulse Rate 65 Respiratory 16 Rate Blood Pressure 118/75 O2 Sat by Pulse 100 100 Oximetry (%) Laboratory Tests 12/17/19 12/18/19 12/18/19 16:00 07:45 07:45 WBC 7.2 RBC 4.80 Hgb 14.6 Hct 43.6 MCV 91.0 MCH 30.4 MCHC 33.4 RDW 13.3 Plt Count 186 MPV 9.4 Sodium Potassium Chloride Carbon Dioxide Anion Gap BUN Creatinine Est GFR (CKD-EPI)AfAm Est GFR (CKD-EPI)NonAf Random Glucose Calcium Total Bilirubin AST ALT Alkaline Phosphatase Total Protein Albumin Syphilis Serology Non-reactive COVID-19 ([facility]) Not detected 12/18/19 07:45 WBC RBC Hgb Hct MCV MCH MCHC RDW Plt Count MPV Sodium 138 Potassium 4.8 Chloride 102 Carbon Dioxide 35 H Anion Gap 2 L BUN 22.8 H Creatinine 1.2 Est GFR (CKD-EPI)AfAm 81.23 Est GFR (CKD-EPI)NonAf 70.09 Random Glucose 72 L Calcium 9.2 Total Bilirubin 0.5 AST 23 ALT 25 Alkaline Phosphatase 86 Total Protein 7.0 Albumin 4.0 Syphilis Serology COVID-19 ([facility]AG) bun 22.8 treating with oral hydration mr mar states that he had right kidney removed and partial left kidney removed he is on his way to have kidney transplant soon "there is a donor" 12/19/19 09:21 Assessment: 12/19/19 09:22 alcohol withdrawal Plan: librium regiment methadone 100 mg po daily
[2019-12-19] MEDS: NICOTINE 7 MG/24 HOURS TOPICAL PATCH TD SCH (10:16)
[2019-12-19] MEDS: PRENATAL VITAMINS W/ FOLIC ACID TABLET (FP) PO SCH (10:16)
[2019-12-19] MEDS: NICOTINE POLACRILEX 2 MG GUM BUC PRN (10:18)
[2019-12-19 13:52] VITALS: BP 116/67; PULSE 84; TEMP 96.1
--- NOTE | 2019-12-19 14:30 | DS ---
[facility] Detox Discharge Summary Admission Date: 12/17/19 Discharge Date: 12/19/19 - History Present History: Alcohol Dependence Additional Comments: 49 years old male was admitted on 12/17/19 for alcohol withdrawal sx management treated with librium detox regiment mr manuel prefers to leave detox today instead of estimated discharge day of 12/22/19 mr manuel states that he has animal at home and needs return home due to animal bounty hunter "is not there" mr manuel has appointment with [facility] 12 pm tomorrow "a team" of doctor is preparing mr manuel for kidney transplant General Appearance: Yes: Within Normal Limits Respiratory: Yes: Within Normal Limits, Lungs Clear, Normal Breath Sounds, No Respiratory Distress, No Accessory Muscle Use Cardiology: Yes: Within Normal Limits, Regular Rhythm, Regular Rate Abdominal: Yes: Within Normal Limits, Normal Bowel Sounds, Flat, Soft, Tenderness Back: Yes: Within Normal Limits, Normal Inspection Musculoskeletal: Yes: Within Normal Limits, full range of Motion, Gait Steady, Pelvis Stable Extremities: Yes: Within Normal Limits, Normal Inspection, Normal Range of Motion, Non-Tender Neurological: Yes: Within Normal Limits, Fully Oriented, Alert, Normal Mood/Affect, Normal Response Integumentary: Yes: Within Normal Limits, Normal Color, Dry, Warm Pertinent Past History: time for discharge 47 minutes treatment team met with mr manuel to discuss the benefits of librium regimen completion mr manuel states that he has [facility] for his alcohol abuse treatment mr manuel states that he can go back to his methadone program for behavioral and psychosocial therapies - Physical Exam Results Vital Signs: Vital Signs Temperature 96.1 F L 12/19/19 13:51 Pulse Rate 84 12/19/19 13:51 Respiratory Rate 18 12/19/19 13:51 Blood Pressure 116/67 12/19/19 13:51 O2 Sat by Pulse Oximetry (%) 98 12/19/19 13:51 Pertinent Admission Physical Exam Findings: alcohol withdrawal Vital Signs - 24 hr 12/18/19 12/18/19 12/19/19 16:58 20:32 06:35 Temperature 96.9 F L 97.3 F L 97.9 F Pulse Rate 57 L 58 L 65 Respiratory 18 16 16 Rate Blood Pressure 114/76 96/64 118/75 O2 Sat by Pulse 99 100 Oximetry (%) 12/19/19 12/19/1920 06:36 09:38 13:51 Temperature 97.4 F L 96.1 F L Pulse Rate 77 84 Respiratory 18 18 Rate Blood Pressure 124/69 116/67 O2 Sat by Pulse 100 100 98 Oximetry (%) Laboratory Tests 12/17/19 12/18/19 12/18/19 16:00 07:45 07:45 WBC 7.2 RBC 4.80 Hgb 14.6 Hct 43.6 MCV 91.0 MCH 30.4 MCHC 33.4 RDW 13.3 Plt Count 186 MPV 9.4 Sodium Potassium Chloride Carbon Dioxide Anion Gap BUN Creatinine Est GFR (CKD-EPI)AfAm Est GFR (CKD-EPI)NonAf Random Glucose Calcium Total Bilirubin AST ALT Alkaline Phosphatase Total Protein Albumin Syphilis Serology Non-reactive COVID-19 ([facility]) Not detected 12/18/19 07:45 WBC RBC Hgb Hct MCV MCH MCHC RDW Plt Count MPV Sodium 138 Potassium 4.8 Chloride 102 Carbon Dioxide 35 H Anion Gap 2 L BUN 22.8 H Creatinine 1.2 Est GFR (CKD-EPI)AfAm 81.23 Est GFR (CKD-EPI)NonAf 70.09 Random Glucose 72 L Calcium 9.2 Total Bilirubin 0.5 AST 23 ALT 25 Alkaline Phosphatase 86 Total Protein 7.0 Albumin 4.0 Syphilis Serology COVID-19 ([facility]) lab noted mr manuel states that covid only good for couple days without repeat for surgery - Treatment Hospital Course: Detox Protocol Followed, Detoxed Safely, Responded well, Disc harged Condition Good, Rehab Referral Accepted Patient has Accepted a Rehab Referral to: [facility] - Medication Discharge Medications: Ambulatory Orders Tamsulosin HCl [Flomax -] 0.4 mg PO DAILY 12/17/19 - Diagnosis (1) Alcohol use disorder Current Visit: Yes Status: Acute (2) Nicotine dependence Current Visit: Yes Status: Acute Qualifiers: Nicotine product type: cigarettes Substance use status: in withdrawal Qualified Code(s): F17.213 - Nicotine dependence, cigarettes, with withdrawal (3) Substance induced mood disorder Current Visit: Yes Status: Suspected (4) H/O renal cell cancer Current Visit: Yes Status: Chronic (5) Opioid dependence on agonist therapy Current Visit: Yes Status: Chronic - AMA Did Patient Leave Against Medical Advice: No CIWA Score - CIWA Score Nausea/Vomitin-No Nausea/No Vomiting Muscle Tremors: None Anxiety: 2 Agitation: 0-Normal Activity Paroxysmal Sweats: No Perspiration Orientation: 0-Oriented Tacttile Disturbances: 0-None Auditory Disturbances: 0-None Visual Disturbances: 1-Very Mild Sensitivity Headache: 0-None Present CIWA-Ar Total Score: 3
[2019-12-20] MEDS ORDERED: chlordiazePOXIDE HCL 10 MG CAPSULE PO PRN
[2019-12-20] MEDS ORDERED: chlordiazePOXIDE HCL 10 MG CAPSULE PO SCH (05:00)
--- NOTE | 2019-12-20 08:20 | PN ---
Teaching Attending Note Name of Resident: Ricardo Cordero ATTENDING PHYSICIAN STATEMENT I saw and evaluated the patient. I reviewed the resident's note and discussed the case with the resident. I agree with the resident's findings and plan as documented. SUBJECTIVE: OBJECTIVE: ASSESSMENT AND PLAN: Agree with resident's plan for detox.
[2019-12-21] MEDS ORDERED: chlordiazePOXIDE HCL 10 MG CAPSULE PO SCH (05:00)
[2019-12-22] MEDS ORDERED: chlordiazePOXIDE HCL 10 MG CAPSULE PO ONE (05:00)
== END 2019-12-19 13:41 | disposition home or self-care (01) | DRG 773 ==
LOC: YASAS 12:04 → Y3N 15:55
PROVIDERS: ADMIT Allergy & Immunology; ATTEND Allergy & Immunology
PROC: HZ2ZZZZ Detoxification Services for Substance Abuse Treatment (ICD-10-PCS; principal; 2019-12-17)
DX: F10.230 Alcohol dependence with withdrawal, uncomplicated (principal); F11.20 Opioid dependence, uncomplicated; F12.20 Cannabis dependence, uncomplicated; F17.213 Nicotine dependence, cigarettes, with withdrawal; F19.24 Other psychoactive substance dependence with psychoactive substance-induced mood disorder; F43.10 Post-traumatic stress disorder, unspecified; Z21 Asymptomatic human immunodeficiency virus [HIV] infection status; Z62.810 Personal history of physical and sexual abuse in childhood; Z90.5 Acquired absence of kidney; Z85.528 Personal history of other malignant neoplasm of kidney; Z91.5 Personal history of self-harm; Z56.0 Unemployment, unspecified
CPT/HCPCS: 36415; 80053; 85027; 86780; 90670; 93005; 93010; U0003

== ENCOUNTER 2020-05-29 16:25 | Inpatient (IN) | payer OTHER ==
[2020-05-29 19:11] VITALS: BMI 22.3
[2020-05-29] MEDS ORDERED: MAGNESIUM HYDROX 2400MG/30ML ORAL SUSPENSION 30 ML CUP PO PRN (21:15)
[2020-05-29] MEDS ORDERED: P-EPHED 60MG/TRIPROLIDI 2.5MG TABLET PO PRN (21:15)
[2020-05-29] MEDS ORDERED: cloNIDine HCL 0.1 MG TABLET PO PRN (21:15)
[2020-05-29] MEDS ORDERED: guaiFENesin 200 MG/10 ML 10 ML UNIT-DOSE CUPS PO PRN (21:15)
[2020-05-29] MEDS ORDERED: MAGNESIUM CITRATE 300 ML BOTTLE PO PRN (21:15)
[2020-05-29] MEDS ORDERED: DICYCLOMINE HCL 10 MG CAPSULE PO PRN (21:15)
[2020-05-29] MEDS ORDERED: ONDANSETRON *ODT* 4 MG TABLET SL PRN (21:15)
[2020-05-29] MEDS ORDERED: BISMUTH SUBSALICYLATE 524 MG/30 ML UD PO PRN (21:15)
[2020-05-29] MEDS ORDERED: ACETAMINOPHEN 325 MG TABLET (FP) PO PRN ×2 (21:15)
[2020-05-29] MEDS ORDERED: MAG HYDROX/AL HYDROX/SIMETH 30 ML UNIT-DOSE CUP PO PRN (21:15)
[2020-05-29] MEDS ORDERED: MENTHOL/PHENOL 1 EACH UD MM PRN (21:15)
[2020-05-29] MEDS ORDERED: METHADONE HCL 10 MG TABLET (FOR DETOX USE ONLY) PO ONE (21:15)
[2020-05-29] MEDS ORDERED: IBUPROFEN 400 MG TABLET (FP) PO PRN (21:15)
[2020-05-29] MEDS: diazePAM 5 MG TABLET PO SCH (23:45)
[2020-05-29] MEDS: THIAMINE HCL 100 MG TABLET (FP) PO SCH (23:46)
[2020-05-29] MEDS: MELATONIN 5 MG TABLETS PO SCH (23:46)
[2020-05-30] MEDS: diazePAM 5 MG TABLET PO SCH ×4 (05:22→22:14)
[2020-05-30] MEDS: NICOTINE POLACRILEX 2 MG GUM BUC PRN ×4 (05:24→20:16)
[2020-05-30] MEDS ORDERED: METHADONE HCL 10 MG TABLET (FOR DETOX USE ONLY) ONE (09:26)
[2020-05-30] MEDS ORDERED: METHADONE HCL 5 MG TABLET (FOR DETOX USE ONLY) ONE (09:26)
[2020-05-30] MEDS ORDERED: METHADONE (DETOX) 20 MG, METHADONE (DETOX) 5 MG PO ONE (10:00)
[2020-05-30] MEDS: PRENATAL VITAMINS W/ FOLIC ACID TABLET (FP) PO SCH (10:16)
[2020-05-30] MEDS: NICOTINE 21 MG/24 HOURS TOPICAL PATCH TD SCH (10:17)
[2020-05-30] MEDS: METHOCARBAMOL 500 MG TABLET PO PRN (10:17)
[2020-05-30 10:40] LABS: POTASSIUM 4.8 mmol/L (3.5-5.1)
[2020-05-30 10:42] LABS: PH,URINE 7.5 (5.0-8.0); URINE APPEARANCE CLEAR; URINE BILIRUBIN NEGATIVE (NEGATIVE); URINE COLOR YELLOW; URINE GLUCOSE (UA) NEGATIVE (NEGATIVE); URINE KETONE NEGATIVE (NEGATIVE); URINE LEUK ESTERASE NEGATIVE (NEGATIVE); URINE NITRITE NEGATIVE (NEGATIVE); URINE PROTEIN NEGATIVE (NEGATIVE); URINE UROBILINOGEN 0.2 mg/dL (0.2-1.0)
[2020-05-30 10:46] LABS: HEMATOCRIT 42.2 % (35.4-49); HEMOGLOBIN 14.2 GM/dL (11.7-16.9); MCH 30.9 pg (25.7-33.7); MCHC 33.7 g/dl (32.0-35.9); MEAN CELL VOLUME 91.6 fl (80-96); MEAN PLT VOLUME 8.7 fl (7.5-11.1); PLATELET COUNT 211 K/MM3 (134-434); RDW 13.4 % (11.9-15.9); WHITE BLOOD COUNT 8.7 K/mm3 (4.0-10.0)
[2020-05-30 10:51] LABS: ALBUMIN 3.8 g/dl (3.4-5.0); BLOOD UREA NITROGEN 15.6 mg/dL (7-18); EPI CELLS 3 /uL (0-25.1); HYALINE CASTS 0 /uL (0-3.1); URINE BACTERIA 7 /uL (0-1359); URINE RBC 5 /uL (0-23.9); URINE WBC 3 /uL (0-25.8)
[2020-05-30 10:54] LABS: CREATININE 1.1 mg/dL (0.55-1.3)
[2020-05-30 10:56] LABS: BILIRUBIN,TOTAL 0.8 mg/dL (0.2-1)
[2020-05-30 10:57] LABS: TOT PROT 6.8 g/dl (6.4-8.2)
[2020-05-30 11:06] LABS: CALCIUM 9.2 mg/dL (8.5-10.1)
[2020-05-30] MEDS: THIAMINE HCL 100 MG TABLET (FP) PO SCH (22:15)
[2020-05-30] MEDS: MELATONIN 5 MG TABLETS PO SCH (22:15)
[2020-05-31] MEDS: diazePAM 5 MG TABLET PO SCH ×3 (05:53→22:10)
[2020-05-31] MEDS: NICOTINE POLACRILEX 2 MG GUM BUC PRN ×3 (05:55→17:51)
[2020-05-31] MEDS ORDERED: METHADONE HCL 10 MG TABLET (FOR DETOX USE ONLY) PO ONE (10:00)
[2020-05-31] MEDS: NICOTINE 21 MG/24 HOURS TOPICAL PATCH TD SCH (10:39)
[2020-05-31] MEDS: TAMSULOSIN HCL 0.4 MG CAP PO SCH (10:39)
[2020-05-31] MEDS: PRENATAL VITAMINS W/ FOLIC ACID TABLET (FP) PO SCH (10:40)
[2020-05-31] MEDS: diazePAM 5 MG TABLET PO PRN (17:49)
[2020-05-31] MEDS: METHOCARBAMOL 500 MG TABLET PO PRN (20:17)
[2020-05-31] MEDS: GABAPENTIN 300 MG CAPSULE PO SCH (22:10)
[2020-05-31] MEDS: THIAMINE HCL 100 MG TABLET (FP) PO SCH (22:10)
[2020-05-31] MEDS: MELATONIN 5 MG TABLETS PO SCH (22:11)
[2020-06-01] MEDS: diazePAM 5 MG TABLET PO SCH ×2 (05:41→18:04)
[2020-06-01] MEDS: METHOCARBAMOL 500 MG TABLET PO PRN (05:43)
[2020-06-01] MEDS: NICOTINE POLACRILEX 2 MG GUM BUC PRN ×4 (05:44→22:03)
[2020-06-01] MEDS ORDERED: METHADONE (DETOX) 10 MG, METHADONE (DETOX) 5 MG PO ONE (10:00)
[2020-06-01] MEDS ORDERED: METHADONE HCL 10 MG TABLET (FOR DETOX USE ONLY) ONE (10:13)
[2020-06-01] MEDS ORDERED: METHADONE HCL 5 MG TABLET (FOR DETOX USE ONLY) ONE (10:13)
[2020-06-01] MEDS: PRENATAL VITAMINS W/ FOLIC ACID TABLET (FP) PO SCH (10:15)
[2020-06-01] MEDS: GABAPENTIN 300 MG CAPSULE PO SCH ×2 (10:16→21:49)
[2020-06-01] MEDS: TAMSULOSIN HCL 0.4 MG CAP PO SCH (10:16)
[2020-06-01] MEDS: diazePAM 5 MG TABLET PO PRN (10:16)
[2020-06-01] MEDS: NICOTINE 21 MG/24 HOURS TOPICAL PATCH TD SCH (10:19)
[2020-06-01] MEDS: LIDOCAINE 5% TOPICAL PATCH TP SCH (10:50)
[2020-06-01] MEDS: MELATONIN 5 MG TABLETS PO SCH (21:49)
[2020-06-01] MEDS: THIAMINE HCL 100 MG TABLET (FP) PO SCH (21:49)
[2020-06-01] MEDS: LIDOCAINE PATCH REMOVAL MC SCH (21:50)
[2020-06-02] MEDS: NICOTINE POLACRILEX 2 MG GUM BUC PRN ×2 (05:25→23:14)
[2020-06-02] MEDS ORDERED: diazePAM 5 MG TABLET PO ONE (06:00)
[2020-06-02] MEDS ORDERED: MASKS NR ONE ×2 (06:24→08:39)
[2020-06-02] MEDS ORDERED: METHADONE HCL 10 MG TABLET (FOR DETOX USE ONLY) PO ONE (10:00)
[2020-06-02] MEDS: TAMSULOSIN HCL 0.4 MG CAP PO SCH (10:58)
[2020-06-02] MEDS: GABAPENTIN 300 MG CAPSULE PO SCH ×2 (11:05→23:12)
[2020-06-02] MEDS: LIDOCAINE 5% TOPICAL PATCH TP SCH (11:06)
[2020-06-02] MEDS: NICOTINE 21 MG/24 HOURS TOPICAL PATCH TD SCH (11:06)
[2020-06-02] MEDS: PRENATAL VITAMINS W/ FOLIC ACID TABLET (FP) PO SCH (11:06)
[2020-06-02 22:51] VITALS: TEMP 97.5
[2020-06-02] MEDS: LIDOCAINE PATCH REMOVAL MC SCH (23:10)
[2020-06-02] MEDS: THIAMINE HCL 100 MG TABLET (FP) PO SCH (23:10)
[2020-06-02] MEDS: MELATONIN 5 MG TABLETS PO SCH (23:13)
[2020-06-03] MEDS: NICOTINE POLACRILEX 2 MG GUM BUC PRN (05:49)
[2020-06-03] MEDS ORDERED: METHADONE HCL 5 MG TABLET (FOR DETOX USE ONLY) PO ONE (06:00)
[2020-06-03 09:37] VITALS: BP 135/87; PULSE 101
== END 2020-06-03 09:58 | disposition home or self-care (01) | DRG 773 ==
LOC: YASAS 16:25 → Y3N 21:28 → Y6N 05-31 15:57
PROVIDERS: ADMIT Allergy & Immunology; ATTEND Allergy & Immunology
PROC: HZ2ZZZZ Detoxification Services for Substance Abuse Treatment (ICD-10-PCS; principal; 2020-05-29)
DX: F11.23 Opioid dependence with withdrawal (principal); F10.230 Alcohol dependence with withdrawal, uncomplicated; F17.210 Nicotine dependence, cigarettes, uncomplicated; F19.280 Other psychoactive substance dependence with psychoactive substance-induced anxiety disorder; F19.24 Other psychoactive substance dependence with psychoactive substance-induced mood disorder; F29 Unspecified psychosis not due to a substance or known physiological condition; F32.9 Major depressive disorder, single episode, unspecified; Z21 Asymptomatic human immunodeficiency virus [HIV] infection status; G47.00 Insomnia, unspecified; M54.5 Low back pain; G89.29 Other chronic pain; Z62.810 Personal history of physical and sexual abuse in childhood; Z85.528 Personal history of other malignant neoplasm of kidney; Z90.5 Acquired absence of kidney; Z91.19 Patient's noncompliance with other medical treatment and regimen
CPT/HCPCS: 36415; 80053; 81003; 85027; 86780; C9803; U0003

== ENCOUNTER 2020-08-21 11:41 | Inpatient (IN) | payer OTHER ==
[2020-08-21 13:01] VITALS: BMI 22.8
[2020-08-21] MEDS ORDERED: METHADONE HCL 10 MG TABLET (FOR DETOX USE ONLY) PO ONE (14:00)
[2020-08-21] MEDS ORDERED: ACETAMINOPHEN 325 MG TABLET (FP) PO PRN ×2 (14:00)
[2020-08-21] MEDS ORDERED: METHOCARBAMOL 500 MG TABLET PO PRN (14:00)
[2020-08-21] MEDS ORDERED: IBUPROFEN 400 MG TABLET (FP) PO PRN (14:00)
[2020-08-21] MEDS ORDERED: MENTHOL/PHENOL 1 EACH UD MM PRN (14:00)
[2020-08-21] MEDS ORDERED: MAGNESIUM CITRATE 300 ML BOTTLE PO PRN (14:00)
[2020-08-21] MEDS ORDERED: cloNIDine HCL 0.1 MG TABLET PO PRN (14:00)
[2020-08-21] MEDS ORDERED: BISMUTH SUBSALICYLATE 262 MG/15 ML BTL PO PRN (14:00)
[2020-08-21] MEDS ORDERED: MAG HYDROX/AL HYDROX/SIMETH 30 ML UNIT-DOSE CUP PO PRN (14:00)
[2020-08-21] MEDS ORDERED: ONDANSETRON *ODT* 4 MG TABLET SL PRN (14:00)
[2020-08-21] MEDS ORDERED: MAGNESIUM HYDROX 2400MG/30ML ORAL SUSPENSION 30 ML CUP PO PRN (14:00)
[2020-08-21] MEDS ORDERED: METHADONE HCL 10 MG TABLET (FOR DETOX USE ONLY) ONE (14:14)
[2020-08-21] MEDS: hydrOXYzine PAMOATE 25 MG CAPSULE (FP) PO SCH ×3 (15:25→22:14)
[2020-08-21] MEDS: PRENATAL VITAMINS W/ FOLIC ACID TABLET (FP) PO SCH (15:25)
[2020-08-21] MEDS: NICOTINE 14 MG/24 HOURS TOPICAL PATCH TD SCH (15:28)
[2020-08-21 20:16] LABS: ALBUMIN 4.2 g/dl (3.4-5.0); BLOOD UREA NITROGEN 18.3 mg/dL (7-18); CALCIUM 9.8 mg/dL (8.5-10.1)
[2020-08-21 20:18] LABS: HEMATOCRIT 42.9 % (35.4-49); HEMOGLOBIN 14.3 GM/dL (11.7-16.9); MCH 30.2 pg (25.7-33.7); MCHC 33.4 g/dl (32.0-35.9); MEAN CELL VOLUME 90.4 fl (80-96); MEAN PLT VOLUME 9.1 fl (7.5-11.1); PLATELET COUNT 242 K/MM3 (134-434); RBC 4.75 M/mm3 (4.00-5.60); RDW 13.5 % (11.9-15.9)
[2020-08-21 20:19] LABS: CREATININE 1.1 mg/dL (0.55-1.3)
[2020-08-21 20:21] LABS: BILIRUBIN,TOTAL 0.6 mg/dL (0.2-1); TOT PROT 7.3 g/dl (6.4-8.2)
[2020-08-21] MEDS: QUEtiapine FUMARATE 100 MG TABLET (FP) PO SCH (22:14)
[2020-08-21] MEDS: THIAMINE HCL 100 MG TABLET (FP) PO SCH (22:15)
[2020-08-21] MEDS: MELATONIN 5 MG TABLETS PO SCH (22:15)
[2020-08-22] MEDS: hydrOXYzine PAMOATE 25 MG CAPSULE (FP) PO SCH ×5 (05:55→22:12)
[2020-08-22] MEDS: PRENATAL VITAMINS W/ FOLIC ACID TABLET (FP) PO SCH (09:18)
[2020-08-22] MEDS: BICTEGRAV/EMTRICIT/TENOFOV (BIKTARVY) 50-200-25 MG TABLET PO SCH (09:18)
[2020-08-22] MEDS: NICOTINE 14 MG/24 HOURS TOPICAL PATCH TD SCH (09:18)
[2020-08-22] MEDS ORDERED: METHADONE HCL 5 MG TABLET (FOR DETOX USE ONLY) ONE (09:19)
[2020-08-22] MEDS ORDERED: METHADONE HCL 10 MG TABLET (FOR DETOX USE ONLY) ONE (09:19)
[2020-08-22] MEDS ORDERED: METHADONE (DETOX) 20 MG, METHADONE (DETOX) 5 MG PO ONE (10:00)
[2020-08-22] MEDS: QUEtiapine FUMARATE 100 MG TABLET (FP) PO SCH (22:12)
[2020-08-22] MEDS: THIAMINE HCL 100 MG TABLET (FP) PO SCH (22:12)
[2020-08-22] MEDS: MELATONIN 5 MG TABLETS PO SCH (22:12)
[2020-08-23] MEDS: hydrOXYzine PAMOATE 25 MG CAPSULE (FP) PO SCH (05:43)
[2020-08-23] MEDS ORDERED: METHADONE HCL 10 MG TABLET (FOR DETOX USE ONLY) PO ONE (10:00)
[2020-08-23] MEDS: NICOTINE 14 MG/24 HOURS TOPICAL PATCH TD SCH (10:05)
[2020-08-23] MEDS: PRENATAL VITAMINS W/ FOLIC ACID TABLET (FP) PO SCH (10:05)
[2020-08-23] MEDS: BICTEGRAV/EMTRICIT/TENOFOV (BIKTARVY) 50-200-25 MG TABLET PO SCH (10:05)
[2020-08-23] MEDS: diazePAM 5 MG TABLET PO PRN ×3 (10:06→21:59)
[2020-08-23] MEDS: hydrOXYzine PAMOATE 25 MG CAPSULE (FP) PO PRN (17:26)
[2020-08-23] MEDS: NICOTINE POLACRILEX 2 MG GUM BUC PRN (17:26)
[2020-08-23] MEDS: MELATONIN 5 MG TABLETS PO SCH (21:58)
[2020-08-23] MEDS: THIAMINE HCL 100 MG TABLET (FP) PO SCH (21:58)
[2020-08-23] MEDS: QUEtiapine FUMARATE 100 MG TABLET (FP) PO SCH (21:58)
[2020-08-24] MEDS: NICOTINE POLACRILEX 2 MG GUM BUC PRN ×4 (06:44→22:22)
[2020-08-24] MEDS ORDERED: METHADONE HCL 10 MG TABLET (FOR DETOX USE ONLY) ONE (09:00)
[2020-08-24] MEDS ORDERED: METHADONE HCL 5 MG TABLET (FOR DETOX USE ONLY) ONE (09:00)
[2020-08-24] MEDS ORDERED: METHADONE (DETOX) 10 MG, METHADONE (DETOX) 5 MG PO ONE (10:00)
[2020-08-24 10:07] LABS: SARS-CoV-2 NAA Not Detected (Not Detected)
[2020-08-24] MEDS: PRENATAL VITAMINS W/ FOLIC ACID TABLET (FP) PO SCH (10:55)
[2020-08-24] MEDS: NICOTINE 14 MG/24 HOURS TOPICAL PATCH TD SCH (10:55)
[2020-08-24] MEDS: diazePAM 5 MG TABLET PO PRN ×2 (18:15→22:21)
[2020-08-24] MEDS: QUEtiapine FUMARATE 100 MG TABLET (FP) PO SCH (22:19)
[2020-08-24] MEDS: MELATONIN 5 MG TABLETS PO SCH (22:19)
[2020-08-24] MEDS: THIAMINE HCL 100 MG TABLET (FP) PO SCH (22:19)
[2020-08-25] MEDS ORDERED: METHADONE HCL 10 MG TABLET (FOR DETOX USE ONLY) PO ONE (10:00)
[2020-08-25] MEDS: diazePAM 5 MG TABLET PO PRN ×3 (10:00→22:09)
[2020-08-25] MEDS: NICOTINE 14 MG/24 HOURS TOPICAL PATCH TD SCH (10:01)
[2020-08-25] MEDS: PRENATAL VITAMINS W/ FOLIC ACID TABLET (FP) PO SCH (10:01)
[2020-08-25] MEDS: BICTEGRAV/EMTRICIT/TENOFOV (BIKTARVY) 50-200-25 MG TABLET PO SCH ×2 (10:01)
[2020-08-25] MEDS: NICOTINE POLACRILEX 2 MG GUM BUC PRN ×3 (10:03→22:10)
[2020-08-25] MEDS: MELATONIN 5 MG TABLETS PO SCH (22:08)
[2020-08-25] MEDS: THIAMINE HCL 100 MG TABLET (FP) PO SCH (22:08)
[2020-08-25] MEDS: QUEtiapine FUMARATE 100 MG TABLET (FP) PO SCH (22:08)
[2020-08-26] MEDS ORDERED: METHADONE HCL 5 MG TABLET (FOR DETOX USE ONLY) PO ONE (06:00)
[2020-08-26 09:52] VITALS: BP 111/69; PULSE 92; TEMP 97.1
[2020-08-26] MEDS: NICOTINE 14 MG/24 HOURS TOPICAL PATCH TD SCH (10:11)
[2020-08-26] MEDS: hydrOXYzine PAMOATE 25 MG CAPSULE (FP) PO PRN (10:12)
[2020-08-26] MEDS: BICTEGRAV/EMTRICIT/TENOFOV (BIKTARVY) 50-200-25 MG TABLET PO SCH (10:12)
[2020-08-26] MEDS: PRENATAL VITAMINS W/ FOLIC ACID TABLET (FP) PO SCH (10:13)
[2020-08-26] MEDS: NICOTINE POLACRILEX 2 MG GUM BUC PRN (10:13)
== END 2020-08-26 12:59 | disposition other institution (70) | DRG 773 ==
LOC: YASAS 11:41 → Y3N 13:17
PROVIDERS: ADMIT Allergy & Immunology; ATTEND Allergy & Immunology
PROC: HZ2ZZZZ Detoxification Services for Substance Abuse Treatment (ICD-10-PCS; principal; 2020-08-21)
DX: F11.23 Opioid dependence with withdrawal (principal); F10.230 Alcohol dependence with withdrawal, uncomplicated; F13.20 Sedative, hypnotic or anxiolytic dependence, uncomplicated; F19.20 Other psychoactive substance dependence, uncomplicated; F12.20 Cannabis dependence, uncomplicated; F17.210 Nicotine dependence, cigarettes, uncomplicated; F19.24 Other psychoactive substance dependence with psychoactive substance-induced mood disorder; F41.1 Generalized anxiety disorder; F25.9 Schizoaffective disorder, unspecified; F31.9 Bipolar disorder, unspecified; F43.10 Post-traumatic stress disorder, unspecified; G47.00 Insomnia, unspecified; Z62.810 Personal history of physical and sexual abuse in childhood; Z91.19 Patient's noncompliance with other medical treatment and regimen
CPT/HCPCS: 36415; 80053; 85027; 86780; C9803; U0003; U0005

== ENCOUNTER 2020-08-26 13:01 | Inpatient (IN) | payer OTHER ==
[2020-08-26] MEDS ORDERED: MAGNESIUM HYDROX 2400MG/30ML ORAL SUSPENSION 30 ML CUP PO PRN (14:16)
[2020-08-26] MEDS ORDERED: LOPERAMIDE HCL 2 MG CAPSULE PO PRN (14:16)
[2020-08-26] MEDS ORDERED: guaiFENesin 200 MG/10 ML 10 ML UNIT-DOSE CUPS PO PRN (14:16)
[2020-08-26] MEDS ORDERED: IBUPROFEN 400 MG TABLET (FP) PO PRN (14:16)
[2020-08-26] MEDS ORDERED: hydrOXYzine PAMOATE 25 MG CAPSULE (FP) PO PRN (14:16)
[2020-08-26] MEDS ORDERED: MAG HYDROX/AL HYDROX/SIMETH 30 ML UNIT-DOSE CUP PO PRN (14:16)
[2020-08-26] MEDS ORDERED: MENTHOL/PHENOL 1 EACH UD MM PRN (14:16)
[2020-08-26] MEDS ORDERED: MAGNESIUM CITRATE 300 ML BOTTLE PO PRN (14:16)
[2020-08-26] MEDS ORDERED: P-EPHED 60MG/TRIPROLIDI 2.5MG TABLET PO PRN (14:16)
[2020-08-26] MEDS ORDERED: ACETAMINOPHEN 325 MG TABLET (FP) PO PRN (14:16)
[2020-08-26] MEDS: NICOTINE POLACRILEX 2 MG GUM BUC PRN ×2 (17:32→21:46)
[2020-08-26] MEDS: MELATONIN 5 MG TABLETS PO SCH (21:45)
[2020-08-26] MEDS: QUEtiapine FUMARATE 100 MG TABLET (FP) PO SCH (21:45)
[2020-08-26] MEDS: THIAMINE HCL 100 MG TABLET (FP) PO SCH (21:45)
[2020-08-27] MEDS: NICOTINE POLACRILEX 2 MG GUM BUC PRN ×3 (06:43→21:09)
[2020-08-27] MEDS: PRENATAL VITAMINS W/ FOLIC ACID TABLET (FP) PO SCH (09:36)
[2020-08-27] MEDS: NICOTINE 14 MG/24 HOURS TOPICAL PATCH TD SCH (09:36)
[2020-08-27] MEDS: BICTEGRAV/EMTRICIT/TENOFOV (BIKTARVY) 50-200-25 MG TABLET PO SCH (09:36)
[2020-08-27] MEDS: THIAMINE HCL 100 MG TABLET (FP) PO SCH (21:07)
[2020-08-27] MEDS: MELATONIN 5 MG TABLETS PO SCH (21:07)
[2020-08-27] MEDS: QUEtiapine FUMARATE 100 MG TABLET (FP) PO SCH (21:07)
[2020-08-28] MEDS: NICOTINE POLACRILEX 2 MG GUM BUC PRN ×3 (06:57→16:22)
[2020-08-28] MEDS ORDERED: PT OWN MED DRAWER 7, Y5N ONE (08:04)
[2020-08-28] MEDS: BICTEGRAV/EMTRICIT/TENOFOV (BIKTARVY) 50-200-25 MG TABLET PO SCH (09:33)
[2020-08-28] MEDS: PRENATAL VITAMINS W/ FOLIC ACID TABLET (FP) PO SCH (09:33)
[2020-08-28] MEDS: NICOTINE 14 MG/24 HOURS TOPICAL PATCH TD SCH (09:34)
[2020-08-28] MEDS: THIAMINE HCL 100 MG TABLET (FP) PO SCH (21:23)
[2020-08-28] MEDS: MELATONIN 5 MG TABLETS PO SCH (21:23)
[2020-08-28] MEDS: QUEtiapine FUMARATE 100 MG TABLET (FP) PO SCH (21:23)
[2020-08-29] MEDS: NICOTINE POLACRILEX 2 MG GUM BUC PRN (07:25)
[2020-08-29] MEDS: BICTEGRAV/EMTRICIT/TENOFOV (BIKTARVY) 50-200-25 MG TABLET PO SCH (09:36)
[2020-08-29] MEDS: PRENATAL VITAMINS W/ FOLIC ACID TABLET (FP) PO SCH (09:36)
[2020-08-29] MEDS: NICOTINE 14 MG/24 HOURS TOPICAL PATCH TD SCH (09:37)
[2020-08-29] MEDS: THIAMINE HCL 100 MG TABLET (FP) PO SCH (21:02)
[2020-08-29] MEDS: QUEtiapine FUMARATE 100 MG TABLET (FP) PO SCH (21:02)
[2020-08-29] MEDS: MELATONIN 5 MG TABLETS PO SCH (21:02)
[2020-08-30 06:45] VITALS: BP 121/83; PULSE 76; TEMP 97.1
[2020-08-30] MEDS: PRENATAL VITAMINS W/ FOLIC ACID TABLET (FP) PO SCH (09:26)
[2020-08-30] MEDS: NICOTINE 14 MG/24 HOURS TOPICAL PATCH TD SCH (09:26)
[2020-08-30 10:07] LABS: SARS-CoV-2 NAA Not Detected (Not Detected)
== END 2020-08-30 10:25 | disposition home or self-care (01) | DRG 772 ==
LOC: YASAS 13:01 → Y5N 13:02
PROVIDERS: ADMIT Allergy & Immunology; ATTEND Allergy & Immunology
PROC: HZ42ZZZ Group Counseling for Substance Abuse Treatment, Cognitive-Behavioral (ICD-10-PCS; principal; 2020-08-26)
DX: F10.20 Alcohol dependence, uncomplicated (principal); F11.20 Opioid dependence, uncomplicated; F12.20 Cannabis dependence, uncomplicated; F17.210 Nicotine dependence, cigarettes, uncomplicated; F25.9 Schizoaffective disorder, unspecified; F43.10 Post-traumatic stress disorder, unspecified; Z21 Asymptomatic human immunodeficiency virus [HIV] infection status; G47.00 Insomnia, unspecified; M54.5 Low back pain; G89.29 Other chronic pain; Z85.528 Personal history of other malignant neoplasm of kidney; Z90.5 Acquired absence of kidney
CPT/HCPCS: C9803; U0003; U0005

== ENCOUNTER 2022-08-22 10:59 | Inpatient (IN) | payer OTHER ==
[2022-08-22 11:33] VITALS: BMI 21.3
[2022-08-22] MEDS ORDERED: METHOCARBAMOL 500 MG TABLET PO PRN (12:14)
[2022-08-22] MEDS ORDERED: BENZONATATE 200 MG CAPSULE PO PRN (12:14)
[2022-08-22] MEDS ORDERED: MAG HYDROX/AL HYDROX/SIMETH 30 ML UNIT-DOSE CUP PO PRN (12:14)
[2022-08-22] MEDS ORDERED: ACETAMINOPHEN 325 MG TABLET (FP) PO PRN (12:14)
[2022-08-22] MEDS ORDERED: IBUPROFEN 600 MG TABLET (FP) PO PRN (12:14)
[2022-08-22] MEDS ORDERED: LOPERAMIDE HCL 2 MG CAPSULE PO PRN (12:14)
[2022-08-22] MEDS ORDERED: BENZOCAINE/MENTHOL (CHLORASEPTIC ) LOZENGE MM PRN (12:14)
[2022-08-22] MEDS ORDERED: NALOXONE HCL 0.4 MG/ML VIAL IM PRN (12:14)
[2022-08-22] MEDS ORDERED: NICOTINE 10 MG CARTRIDGE (INHALER) IH PRN (12:14)
[2022-08-22] MEDS ORDERED: guaiFENesin 600 MG TABLET.ER (FP) PO PRN (12:14)
[2022-08-22] MEDS ORDERED: IBUPROFEN 400 MG TABLET (FP) PO PRN (12:14)
[2022-08-22] MEDS ORDERED: MAGNESIUM HYDROX 2400MG/30ML ORAL SUSPENSION 30 ML CUP PO PRN (12:14)
[2022-08-22] MEDS ORDERED: ONDANSETRON *ODT* 4 MG TABLET SL PRN (12:14)
[2022-08-22] MEDS ORDERED: AMMONIUM LACTATE 12% LOTION 225 GM BOTTLE TP PRN (12:14)
[2022-08-22] MEDS ORDERED: COLLOIDAL OATMEAL 1 BAR EACH TP PRN (12:14)
[2022-08-22] MEDS ORDERED: DICYCLOMINE HCL 10 MG CAPSULE PO PRN (12:14)
[2022-08-22] MEDS ORDERED: LORazepam 2 MG TABLET PO ONE (12:14)
[2022-08-22] MEDS ORDERED: POLYETHYLENE GLYCOL (HEALTHYLAX) 3350 17 GM PACKET PO PRN (12:14)
[2022-08-22] MEDS ORDERED: BISMUTH SUBSALICYLATE 262 MG/15 ML BTL PO PRN (12:14)
[2022-08-22] MEDS ORDERED: NALOXONE HCL (KLOXXADO) 8 MG SPRAY NS PRN (12:14)
[2022-08-22] MEDS ORDERED: methaDONE HCL 10 MG TABLET PO SCH (12:30)
[2022-08-22] MEDS: NICOTINE 21 MG/24 HOURS TOPICAL PATCH TD SCH (12:37)
[2022-08-22] MEDS: BICTEGRAV/EMTRICIT/TENOFOV (BIKTARVY) 50-200-25 MG TABLET PO SCH (12:43)
[2022-08-22] MEDS ORDERED: NICOTINE 21 MG/24 HOURS TOPICAL PATCH ONE (12:44)
[2022-08-22] MEDS ORDERED: LORazepam 2 MG TABLET ONE (12:44)
[2022-08-22] MEDS: methaDONE 80 MG, methaDONE 10 MG PO SCH (12:56)
[2022-08-22] MEDS: NICOTINE POLACRILEX 2 MG GUM BUC PRN ×2 (13:58→22:23)
[2022-08-22 16:19] LABS: HEMATOCRIT 43.7 % (35.4-49); HEMOGLOBIN 14.7 GM/dL (11.7-16.9); MCH 29.9 pg (25.7-33.7); MCHC 33.8 g/dl (32.0-35.9); MEAN CELL VOLUME 88.6 fl (80-96); MEAN PLT VOLUME 8.8 fl (7.5-11.1); PLATELET COUNT 178 10^3/uL (134-434); RBC 4.93 M/mm3 (4.00-5.60); RDW 14.4 % (11.9-15.9); WHITE BLOOD COUNT 7.8 K/mm3 (4.0-10.0)
[2022-08-22 16:20] LABS: ALBUMIN 4.1 g/dl (3.4-5.0); BLOOD UREA NITROGEN 13.2 mg/dL (7-18); CALCIUM 9.7 mg/dL (8.5-10.1)
[2022-08-22 16:23] LABS: CREATININE 1.1 mg/dL (0.55-1.3)
[2022-08-22 16:25] LABS: BILIRUBIN,TOTAL 0.6 mg/dL (0.2-1); TOT PROT 7.3 g/dl (6.4-8.2)
[2022-08-22] MEDS: LORazepam 2 MG TABLET PO SCH ×2 (17:19→22:21)
[2022-08-22] MEDS ORDERED: ALBUTEROL SO4 0.083% IH SOL 2.5 MG/3 ML VIAL.NEB. NEB PRN (20:20)
[2022-08-22] MEDS ORDERED: AMOX TR/POT CLAV 875MG/125MG TABLETS (FP) PO ONE (21:17)
[2022-08-22] MEDS: MELATONIN 5 MG TABLETS PO SCH (22:20)
[2022-08-22] MEDS: THIAMINE HCL 100 MG TABLET (FP) PO SCH (22:20)
[2022-08-23] MEDS ORDERED: AMOX TR/POT CLAV 875MG/125MG TABLETS (FP) PO ONE (00:15)
[2022-08-23] MEDS: ALBUTEROL SO4 2.5/IPRATROPIUM 0.5 INH SOL 3 ML VIAL.NEB. NEB SCH ×3 (00:32→20:03)
[2022-08-23] MEDS: methaDONE 80 MG, methaDONE 10 MG PO SCH (05:26)
[2022-08-23] MEDS: LORazepam 2 MG TABLET PO SCH ×4 (05:27→23:15)
[2022-08-23] MEDS: NICOTINE POLACRILEX 2 MG GUM BUC PRN ×2 (05:46→13:36)
[2022-08-23] MEDS: AMOX TR/POT CLAV 875MG/125MG TABLETS (FP) PO SCH ×2 (07:23→17:03)
[2022-08-23] MEDS: BICTEGRAV/EMTRICIT/TENOFOV (BIKTARVY) 50-200-25 MG TABLET PO SCH (07:23)
[2022-08-23] MEDS: NICOTINE 21 MG/24 HOURS TOPICAL PATCH TD SCH (10:31)
[2022-08-23] MEDS: PRENATAL VITAMINS W/ FOLIC ACID TABLET (FP) PO SCH (10:32)
[2022-08-23] MEDS: QUEtiapine FUMARATE 100 MG TABLET (FP) PO SCH ×2 (22:00→23:19)
[2022-08-23] MEDS: THIAMINE HCL 100 MG TABLET (FP) PO SCH (23:15)
[2022-08-23] MEDS: MELATONIN 5 MG TABLETS PO SCH (23:15)
[2022-08-23] MEDS: SUVOREXANT 10 MG TABLET PO PRN (23:17)
[2022-08-24] MEDS: ALBUTEROL SO4 2.5/IPRATROPIUM 0.5 INH SOL 3 ML VIAL.NEB. NEB SCH (01:05)
[2022-08-24] MEDS: LORazepam 1 MG TABLET PO SCH ×4 (05:53→22:38)
[2022-08-24] MEDS: methaDONE 80 MG, methaDONE 10 MG PO SCH (05:54)
[2022-08-24] MEDS: AMOX TR/POT CLAV 875MG/125MG TABLETS (FP) PO SCH ×2 (08:44→17:54)
[2022-08-24] MEDS: BICTEGRAV/EMTRICIT/TENOFOV (BIKTARVY) 50-200-25 MG TABLET PO SCH (08:44)
[2022-08-24] MEDS: NICOTINE POLACRILEX 2 MG GUM BUC PRN ×3 (09:28→22:40)
[2022-08-24] MEDS: PRENATAL VITAMINS W/ FOLIC ACID TABLET (FP) PO SCH (10:15)
[2022-08-24] MEDS: NICOTINE 21 MG/24 HOURS TOPICAL PATCH TD SCH (10:16)
[2022-08-24] MEDS: THIAMINE HCL 100 MG TABLET (FP) PO SCH (22:38)
[2022-08-24] MEDS: MELATONIN 5 MG TABLETS PO SCH (22:39)
[2022-08-24] MEDS: QUEtiapine FUMARATE 100 MG TABLET (FP) PO SCH (22:39)
[2022-08-24] MEDS: SUVOREXANT 10 MG TABLET PO PRN (22:39)
[2022-08-25] MEDS: methaDONE 80 MG, methaDONE 10 MG PO SCH (05:51)
[2022-08-25] MEDS: LORazepam 0.5 MG TABLET PO SCH ×2 (05:51→10:22)
[2022-08-25] MEDS: NICOTINE POLACRILEX 2 MG GUM BUC PRN (05:54)
[2022-08-25] MEDS: BICTEGRAV/EMTRICIT/TENOFOV (BIKTARVY) 50-200-25 MG TABLET PO SCH (08:00)
[2022-08-25] MEDS: AMOX TR/POT CLAV 875MG/125MG TABLETS (FP) PO SCH (08:00)
[2022-08-25] MEDS: PRENATAL VITAMINS W/ FOLIC ACID TABLET (FP) PO SCH (09:38)
[2022-08-25] MEDS: NICOTINE 21 MG/24 HOURS TOPICAL PATCH TD SCH (09:38)
[2022-08-25 09:55] VITALS: BP 139/79; PULSE 63; RESP 16; TEMP 97.3
[2022-08-26] MEDS ORDERED: LORazepam 0.5 MG TABLET PO ONE (05:00)
== END 2022-08-25 09:40 | disposition home or self-care (01) | DRG 773 ==
LOC: YASAS 10:59 → Y6N 12:07
PROVIDERS: ADMIT Allergy & Immunology; ATTEND Surgery
PROC: HZ2ZZZZ Detoxification Services for Substance Abuse Treatment (ICD-10-PCS; principal; 2022-08-22)
DX: F10.230 Alcohol dependence with withdrawal, uncomplicated (principal); F11.20 Opioid dependence, uncomplicated; F17.210 Nicotine dependence, cigarettes, uncomplicated; F25.9 Schizoaffective disorder, unspecified; F43.10 Post-traumatic stress disorder, unspecified; F19.282 Other psychoactive substance dependence with psychoactive substance-induced sleep disorder; F19.24 Other psychoactive substance dependence with psychoactive substance-induced mood disorder; Z21 Asymptomatic human immunodeficiency virus [HIV] infection status; J44.9 Chronic obstructive pulmonary disease, unspecified; J45.20 Mild intermittent asthma, uncomplicated; M54.50 Low back pain, unspecified; Z62.810 Personal history of physical and sexual abuse in childhood; C64.9 Malignant neoplasm of unspecified kidney, except renal pelvis; Z90.5 Acquired absence of kidney; Z87.01 Personal history of pneumonia (recurrent)
CPT/HCPCS: 36415; 71045-TC-FY; 80053; 82140; 85027; 86780; 94640; C9803-CS; Q0162; U0003; U0005

== ENCOUNTER 2023-01-23 13:10 | Inpatient (IN) | payer OTHER ==
[2023-01-23 14:41] VITALS: BMI 20.9
[2023-01-23] MEDS ORDERED: COLLOIDAL OATMEAL 1 BAR EACH TP PRN (15:45)
[2023-01-23] MEDS ORDERED: NALOXONE HCL (KLOXXADO) 8 MG SPRAY NS PRN (15:45)
[2023-01-23] MEDS ORDERED: IBUPROFEN 400 MG TABLET (FP) PO PRN (15:45)
[2023-01-23] MEDS ORDERED: POLYETHYLENE GLYCOL (HEALTHYLAX) 3350 17 GM PACKET PO PRN (15:45)
[2023-01-23] MEDS ORDERED: BENZOCAINE/MENTHOL (CHLORASEPTIC ) LOZENGE MM PRN (15:45)
[2023-01-23] MEDS ORDERED: LOPERAMIDE HCL 2 MG CAPSULE PO PRN (15:45)
[2023-01-23] MEDS ORDERED: MAG HYDROX/AL HYDROX/SIMETH 30 ML UNIT-DOSE CUP PO PRN (15:45)
[2023-01-23] MEDS ORDERED: guaiFENesin 600 MG TABLET.ER (FP) PO PRN (15:45)
[2023-01-23] MEDS ORDERED: IBUPROFEN 600 MG TABLET (FP) PO PRN (15:45)
[2023-01-23] MEDS ORDERED: BENZONATATE 200 MG CAPSULE PO PRN (15:45)
[2023-01-23] MEDS ORDERED: MAGNESIUM HYDROX 2400MG/30ML ORAL SUSPENSION 30 ML CUP PO PRN (15:45)
[2023-01-23] MEDS ORDERED: hydrOXYzine PAMOATE 25 MG CAPSULE (FP) PO PRN (15:45)
[2023-01-23] MEDS ORDERED: ACETAMINOPHEN 325 MG TABLET (FP) PO PRN (15:45)
[2023-01-23] MEDS ORDERED: NALOXONE HCL 0.4 MG/ML VIAL IM PRN (15:45)
[2023-01-23] MEDS ORDERED: ALBUTEROL SO4 HFA INHALER IH PRN (15:48)
[2023-01-23] MEDS: MELATONIN 5 MG TABLETS PO SCH (21:25)
[2023-01-23] MEDS: NICOTINE 14 MG/24 HOURS TOPICAL PATCH TD SCH (21:27)
[2023-01-23] MEDS: PRENATAL VITAMINS W/ FOLIC ACID TABLET (FP) PO SCH (21:27)
[2023-01-23] MEDS: THIAMINE HCL 100 MG TABLET (FP) PO SCH (21:55)
[2023-01-24] MEDS ORDERED: ONDANSETRON 4 MG TABLET PO ONE (04:22)
[2023-01-24] MEDS: ONDANSETRON *ODT* 4 MG TABLET SL PRN ×2 (04:40→17:02)
[2023-01-24] MEDS: TAMSULOSIN HCL 0.4 MG CAP PO SCH (09:53)
[2023-01-24] MEDS: NICOTINE 14 MG/24 HOURS TOPICAL PATCH TD SCH (09:53)
[2023-01-24] MEDS: PRENATAL VITAMINS W/ FOLIC ACID TABLET (FP) PO SCH (09:53)
[2023-01-24] MEDS: BICTEGRAV/EMTRICIT/TENOFOV (BIKTARVY) 50-200-25 MG TABLET PO SCH (09:56)
[2023-01-24 10:35] LABS: HEMATOCRIT 46.2 % (35.4-49); HEMOGLOBIN 14.7 GM/dL (11.7-16.9); MCH 29.6 pg (25.7-33.7); MCHC 31.8 g/dl (32.0-35.9); MEAN CELL VOLUME 93.1 fl (80-96); MEAN PLT VOLUME 8.8 fl (7.5-11.1); PLATELET COUNT 198 10^3/uL (134-434); RBC 4.97 M/mm3 (4.00-5.60); RDW 13.8 % (11.9-15.9); WHITE BLOOD COUNT 6.3 K/mm3 (4.0-10.0)
[2023-01-24 10:36] LABS: CHLORIDE 104 mmol/L (98-107); POTASSIUM 4.7 mmol/L (3.5-5.1); SODIUM 138 mmol/L (136-145)
[2023-01-24 10:38] LABS: ALBUMIN 4.2 g/dl (3.4-5.0); ANION GAP 4 mmol/L (4-13); CALCIUM 9.6 mg/dL (8.5-10.1); CO2 30 mmol/L (21-32); GLUCOSE,RANDOM 98 mg/dL (74-106)
[2023-01-24 10:39] LABS: BLOOD UREA NITROGEN 17.7 mg/dL (7-18)
[2023-01-24 10:41] LABS: SGOT/AST 17 U/L (15-37); SGPT/ALT 19 U/L (13-61)
[2023-01-24 10:43] LABS: TOT PROT 7.3 g/dl (6.4-8.2)
[2023-01-24 10:44] LABS: ALK PHOS 71 U/L (45-117)
[2023-01-24 10:45] LABS: BILIRUBIN,TOTAL 0.6 mg/dL (0.2-1); CREATININE 1.1 mg/dL (0.55-1.3)
[2023-01-24] MEDS: methaDONE HCL 40 MG DISPERSABLE TABLET PO SCH (11:13)
[2023-01-24 11:39] LABS: SYPHILIS W/ RPR CONF NON-REACTIVE (NONREACTIVE)
[2023-01-24] MEDS: THIAMINE HCL 100 MG TABLET (FP) PO SCH (21:29)
[2023-01-24] MEDS: MELATONIN 5 MG TABLETS PO SCH (21:29)
[2023-01-24 22:09] LABS: URINE APPEARANCE TURBID; URINE BILIRUBIN NEGATIVE (NEGATIVE); URINE COLOR YELLOW; URINE GLUCOSE (UA) NEGATIVE (NEGATIVE); URINE KETONE NEGATIVE (NEGATIVE); URINE LEUK ESTERASE NEGATIVE (NEGATIVE); URINE NITRITE NEGATIVE (NEGATIVE); URINE PROTEIN NEGATIVE (NEGATIVE)
[2023-01-25] MEDS: ONDANSETRON *ODT* 4 MG TABLET SL PRN ×2 (03:42→15:25)
[2023-01-25] MEDS: methaDONE HCL 40 MG DISPERSABLE TABLET PO SCH (06:11)
[2023-01-25] MEDS: NICOTINE POLACRILEX 2 MG GUM BUC PRN (06:58)
[2023-01-25] MEDS: PRENATAL VITAMINS W/ FOLIC ACID TABLET (FP) PO SCH (10:28)
[2023-01-25] MEDS: BICTEGRAV/EMTRICIT/TENOFOV (BIKTARVY) 50-200-25 MG TABLET PO SCH (10:29)
[2023-01-25] MEDS: TAMSULOSIN HCL 0.4 MG CAP PO SCH (10:29)
[2023-01-25] MEDS: NICOTINE 14 MG/24 HOURS TOPICAL PATCH TD SCH (10:29)
[2023-01-25] MEDS: QUEtiapine FUMARATE 100 MG TABLET (FP) PO SCH (21:31)
[2023-01-25] MEDS: MELATONIN 5 MG TABLETS PO SCH (21:34)
[2023-01-25] MEDS: THIAMINE HCL 100 MG TABLET (FP) PO SCH (21:34)
[2023-01-25] MEDS: SUVOREXANT 10 MG TABLET PO PRN (21:34)
[2023-01-26] MEDS: ONDANSETRON *ODT* 4 MG TABLET SL PRN (04:52)
[2023-01-26] MEDS: methaDONE HCL 40 MG DISPERSABLE TABLET PO SCH (06:29)
[2023-01-26] MEDS: TAMSULOSIN HCL 0.4 MG CAP PO SCH (08:30)
[2023-01-26] MEDS: NICOTINE 14 MG/24 HOURS TOPICAL PATCH TD SCH (10:28)
[2023-01-26] MEDS: clonazePAM 0.5 MG ODT TABLETS SL SCH (10:28)
[2023-01-26] MEDS: PRENATAL VITAMINS W/ FOLIC ACID TABLET (FP) PO SCH (10:28)
[2023-01-26] MEDS: BICTEGRAV/EMTRICIT/TENOFOV (BIKTARVY) 50-200-25 MG TABLET PO SCH (12:10)
[2023-01-26] MEDS: THIAMINE HCL 100 MG TABLET (FP) PO SCH (21:24)
[2023-01-26] MEDS: MELATONIN 5 MG TABLETS PO SCH (21:24)
[2023-01-26] MEDS: QUEtiapine FUMARATE 100 MG TABLET (FP) PO SCH (21:24)
[2023-01-26] MEDS: SUVOREXANT 10 MG TABLET PO PRN (21:25)
[2023-01-27] MEDS: methaDONE HCL 40 MG DISPERSABLE TABLET PO SCH (06:25)
[2023-01-27] MEDS: NICOTINE 14 MG/24 HOURS TOPICAL PATCH TD SCH (09:46)
[2023-01-27] MEDS: PRENATAL VITAMINS W/ FOLIC ACID TABLET (FP) PO SCH (09:46)
[2023-01-27] MEDS: clonazePAM 0.5 MG ODT TABLETS SL SCH (09:46)
[2023-01-27] MEDS: TAMSULOSIN HCL 0.4 MG CAP PO SCH (09:46)
[2023-01-27] MEDS: BICTEGRAV/EMTRICIT/TENOFOV (BIKTARVY) 50-200-25 MG TABLET PO SCH (13:30)
[2023-01-27] MEDS: NICOTINE POLACRILEX 2 MG GUM BUC PRN (14:49)
[2023-01-27] MEDS: ONDANSETRON *ODT* 4 MG TABLET SL PRN (18:47)
[2023-01-27] MEDS: MELATONIN 5 MG TABLETS PO SCH (21:35)
[2023-01-27] MEDS: THIAMINE HCL 100 MG TABLET (FP) PO SCH (21:35)
[2023-01-27] MEDS: SUVOREXANT 10 MG TABLET PO PRN (21:35)
[2023-01-27] MEDS: QUEtiapine FUMARATE 100 MG TABLET (FP) PO SCH (21:37)
[2023-01-28] MEDS: methaDONE HCL 40 MG DISPERSABLE TABLET PO SCH (06:23)
[2023-01-28] MEDS: NICOTINE POLACRILEX 2 MG GUM BUC PRN ×3 (06:24→21:36)
[2023-01-28] MEDS: NICOTINE 14 MG/24 HOURS TOPICAL PATCH TD SCH (10:03)
[2023-01-28] MEDS: PRENATAL VITAMINS W/ FOLIC ACID TABLET (FP) PO SCH (10:03)
[2023-01-28] MEDS: TAMSULOSIN HCL 0.4 MG CAP PO SCH (10:04)
[2023-01-28] MEDS: clonazePAM 0.5 MG ODT TABLETS SL SCH (10:04)
[2023-01-28] MEDS: BICTEGRAV/EMTRICIT/TENOFOV (BIKTARVY) 50-200-25 MG TABLET PO SCH (11:59)
[2023-01-28] MEDS: SUVOREXANT 10 MG TABLET PO PRN (21:33)
[2023-01-28] MEDS: THIAMINE HCL 100 MG TABLET (FP) PO SCH (21:34)
[2023-01-28] MEDS: MELATONIN 5 MG TABLETS PO SCH (21:34)
[2023-01-28] MEDS: QUEtiapine FUMARATE 100 MG TABLET (FP) PO SCH (21:34)
[2023-01-29] MEDS: methaDONE HCL 40 MG DISPERSABLE TABLET PO SCH (06:10)
[2023-01-29] MEDS: NICOTINE POLACRILEX 2 MG GUM BUC PRN ×2 (07:01→09:49)
[2023-01-29] MEDS: TAMSULOSIN HCL 0.4 MG CAP PO SCH (09:47)
[2023-01-29] MEDS: clonazePAM 0.5 MG ODT TABLETS SL SCH (09:47)
[2023-01-29] MEDS: PRENATAL VITAMINS W/ FOLIC ACID TABLET (FP) PO SCH (09:47)
[2023-01-29] MEDS: NICOTINE 14 MG/24 HOURS TOPICAL PATCH TD SCH (09:47)
[2023-01-29] MEDS: BICTEGRAV/EMTRICIT/TENOFOV (BIKTARVY) 50-200-25 MG TABLET PO SCH (12:08)
[2023-01-29] MEDS ORDERED: MINERAL OIL ENEMA 133 ML ENEMA RC ONE (15:40)
[2023-01-29] MEDS ORDERED: SODIUM PHOSPHATE/NA BIPHOS 133 ML ENEMA RC ONE (16:15)
[2023-01-29] MEDS: MELATONIN 5 MG TABLETS PO SCH (22:16)
[2023-01-29] MEDS: THIAMINE HCL 100 MG TABLET (FP) PO SCH (22:16)
[2023-01-29] MEDS: ONDANSETRON *ODT* 4 MG TABLET SL PRN (22:16)
[2023-01-29] MEDS: QUEtiapine FUMARATE 100 MG TABLET (FP) PO SCH (22:19)
[2023-01-29] MEDS ORDERED: SUVOREXANT 10 MG TABLET PO ONE (22:46)
[2023-01-30] MEDS: methaDONE HCL 40 MG DISPERSABLE TABLET PO SCH (06:15)
[2023-01-30 07:06] VITALS: BP 115/78; PULSE 93; RESP 16; TEMP 96.8
[2023-01-30] MEDS: TAMSULOSIN HCL 0.4 MG CAP PO SCH (09:44)
[2023-01-30] MEDS: PRENATAL VITAMINS W/ FOLIC ACID TABLET (FP) PO SCH (09:44)
[2023-01-30] MEDS: clonazePAM 0.5 MG ODT TABLETS SL SCH (09:44)
[2023-01-30] MEDS: NICOTINE 14 MG/24 HOURS TOPICAL PATCH TD SCH (09:44)
[2023-01-30] MEDS: BICTEGRAV/EMTRICIT/TENOFOV (BIKTARVY) 50-200-25 MG TABLET PO SCH (12:45)
[2023-01-30] MEDS ORDERED: SUVOREXANT 10 MG TABLET PO PRN (22:00)
== END 2023-01-30 14:21 | disposition home or self-care (01) | DRG 772 ==
LOC: YASAS 13:10 → Y5N 18:28 → Y3W 18:50 → Y5N 18:56
PROVIDERS: ADMIT Allergy & Immunology; ATTEND Psychiatry & Neurology Pain Medicine
PROC: HZ42ZZZ Group Counseling for Substance Abuse Treatment, Cognitive-Behavioral (ICD-10-PCS; principal; 2023-01-23)
DX: F10.20 Alcohol dependence, uncomplicated (principal); F11.20 Opioid dependence, uncomplicated; F17.210 Nicotine dependence, cigarettes, uncomplicated; F25.9 Schizoaffective disorder, unspecified; F90.9 Attention-deficit hyperactivity disorder, unspecified type; Z21 Asymptomatic human immunodeficiency virus [HIV] infection status; J44.9 Chronic obstructive pulmonary disease, unspecified; J45.20 Mild intermittent asthma, uncomplicated; G47.00 Insomnia, unspecified; Z85.528 Personal history of other malignant neoplasm of kidney
CPT/HCPCS: 36415; 80053; 80307; 81003; 82140; 85027; 86780; 86803; 87635; Q0162

== ENCOUNTER 2023-10-23 10:36 | Inpatient (IN) | payer OTHER ==
[2023-10-23 11:08] VITALS: BMI 21.2
[2023-10-23] MEDS ORDERED: guaiFENesin 600 MG TABLET.ER (FP) PO PRN (11:38)
[2023-10-23] MEDS ORDERED: LOPERAMIDE HCL 2 MG CAPSULE PO PRN (11:38)
[2023-10-23] MEDS ORDERED: DICYCLOMINE HCL 10 MG CAPSULE PO PRN (11:38)
[2023-10-23] MEDS ORDERED: NALOXONE HCL 0.4 MG/ML VIAL IM PRN (11:38)
[2023-10-23] MEDS ORDERED: BENZOCAINE/MENTHOL (CHLORASEPTIC ) LOZENGE MM PRN (11:38)
[2023-10-23] MEDS ORDERED: IBUPROFEN 600 MG TABLET (FP) PO PRN (11:38)
[2023-10-23] MEDS ORDERED: IBUPROFEN 400 MG TABLET (FP) PO PRN (11:38)
[2023-10-23] MEDS ORDERED: POLYETHYLENE GLYCOL (HEALTHYLAX) 3350 17 GM PACKET PO PRN (11:38)
[2023-10-23] MEDS ORDERED: hydrOXYzine PAMOATE 25 MG CAPSULE (FP) PO PRN (11:38)
[2023-10-23] MEDS ORDERED: BENZONATATE 200 MG CAPSULE PO PRN (11:38)
[2023-10-23] MEDS ORDERED: MAGNESIUM HYDROX 2400MG/30ML ORAL SUSPENSION 30 ML CUP PO PRN (11:38)
[2023-10-23] MEDS ORDERED: NALOXONE (NARCAN) HCL 4 MG/0.1 ML SPRAY NS PRN (11:38)
[2023-10-23] MEDS ORDERED: cloNIDine HCL 0.1 MG TABLET PO PRN (11:42)
[2023-10-23] MEDS ORDERED: methaDONE HCL 10 MG TABLET (FOR DETOX USE ONLY) ONE (11:49)
[2023-10-23] MEDS: methaDONE HCL 10 MG TABLET (FOR DETOX USE ONLY) PO ONE (11:52)
[2023-10-23] MEDS: PRENATAL VITAMINS W/ FOLIC ACID TABLET (FP) PO SCH (11:54)
[2023-10-23] MEDS: diazePAM 5 MG TABLET PO PRN (13:08)
[2023-10-23] MEDS: diazePAM 5 MG TABLET PO SCH (17:03)
[2023-10-23] MEDS: MAG HYDROX/AL HYDROX/SIMETH 30 ML UNIT-DOSE CUP PO PRN (21:15)
[2023-10-23] MEDS: MELATONIN 5 MG TABLETS PO SCH (23:25)
[2023-10-23] MEDS: ONDANSETRON *ODT* 4 MG TABLET SL PRN (23:25)
[2023-10-23] MEDS: THIAMINE 100 MG TABLET PO SCH (23:25)
[2023-10-23] MEDS: METHOCARBAMOL 500 MG TABLET PO PRN (23:27)
[2023-10-24] MEDS: ACETAMINOPHEN 325 MG TABLET (FP) PO PRN (04:33)
[2023-10-24] MEDS: BICTEGRAV/EMTRICIT/TENOFOV (BIKTARVY) 50-200-25 MG TABLET PO SCH (09:19)
[2023-10-24] MEDS: LIDOCAINE 4% PATCH TP SCH (09:19)
[2023-10-24] MEDS: TAMSULOSIN HCL 0.4 MG CAP PO SCH (09:21)
[2023-10-24] MEDS: NICOTINE 14 MG/24 HOURS TOPICAL PATCH TD SCH (09:35)
[2023-10-24] MEDS: ESCITALOPRAM OXALATE 10 MG TABLET PO SCH (09:47)
[2023-10-24 14:24] LABS: HEMATOCRIT 39.5 % (35.4-49); HEMOGLOBIN 13.4 GM/dL (11.7-16.9); MEAN CELL VOLUME 88.3 fl (80-96); MEAN PLT VOLUME 8.9 fl (7.5-11.1); PLATELET COUNT 214 10^3/uL (134-434); RBC 4.47 M/mm3 (4.00-5.60); RDW 13.8 % (11.9-15.9); WHITE BLOOD COUNT 8.5 K/mm3 (4.0-10.0)
[2023-10-24 14:26] LABS: CHLORIDE 103 mmol/L (98-107); POTASSIUM 3.8 mmol/L (3.5-5.1); SODIUM 139 mmol/L (136-145)
[2023-10-24 14:30] LABS: CALCIUM 9.4 mg/dL (8.5-10.1); GLUCOSE,RANDOM 72 mg/dL (74-106)
[2023-10-24 14:31] LABS: ALBUMIN 3.6 g/dl (3.4-5.0); ANION GAP 4 mmol/L (4-13); BLOOD UREA NITROGEN 14.8 mg/dL (7-18); CO2 33 mmol/L (21-32)
[2023-10-24 14:33] LABS: SGOT/AST 19 U/L (15-37); SGPT/ALT 20 U/L (13-61)
[2023-10-24 14:35] LABS: TOT PROT 6.7 g/dl (6.4-8.2)
[2023-10-24 14:38] LABS: ALK PHOS 92 U/L (45-117)
[2023-10-24 14:46] LABS: BILIRUBIN,TOTAL 0.2 mg/dL (0.2-1)
[2023-10-24] MEDS: BISMUTH SUBSALICYLATE 262 MG/15 ML BTL PO PRN (16:54)
[2023-10-24] MEDS: QUEtiapine FUMARATE 100 MG TABLET (FP) PO SCH (22:20)
[2023-10-24] MEDS: LIDOCAINE PATCH REMOVAL MC SCH (22:21)
[2023-10-25] MEDS: METHYL SALICYLATE/MENTHOL OINT 30 GM TUBE TP PRN (03:34)
[2023-10-25] MEDS: diazePAM 5 MG TABLET PO SCH (05:04)
[2023-10-25] MEDS: methaDONE HCL 10 MG TABLET (FOR DETOX USE ONLY) PO ONE (09:24)
[2023-10-26] MEDS: diazePAM 5 MG TABLET PO SCH (06:10)
[2023-10-26] MEDS: NICOTINE POLACRILEX 4 MG GUM BUC PRN (06:12)
[2023-10-26 08:53] VITALS: RESP 18
[2023-10-26 12:50] VITALS: BP 126/81; PULSE 82; TEMP 97.5
[2023-10-27] MEDS ORDERED: diazePAM 5 MG TABLET PO ONE (06:00)
[2023-10-27] MEDS ORDERED: methaDONE HCL 10 MG TABLET (FOR DETOX USE ONLY) PO ONE (10:00)
== END 2023-10-26 14:18 | disposition home or self-care (01) | DRG 773 ==
LOC: YASAS 10:36 → Y6N 11:52
PROVIDERS: ADMIT Allergy & Immunology; ATTEND Surgery
PROC: HZ2ZZZZ Detoxification Services for Substance Abuse Treatment (ICD-10-PCS; principal; 2023-10-23)
DX: F11.23 Opioid dependence with withdrawal (principal); F10.230 Alcohol dependence with withdrawal, uncomplicated; F14.20 Cocaine dependence, uncomplicated; F12.20 Cannabis dependence, uncomplicated; F17.210 Nicotine dependence, cigarettes, uncomplicated; F25.1 Schizoaffective disorder, depressive type; F43.10 Post-traumatic stress disorder, unspecified; Z21 Asymptomatic human immunodeficiency virus [HIV] infection status; C64.9 Malignant neoplasm of unspecified kidney, except renal pelvis; N40.0 Benign prostatic hyperplasia without lower urinary tract symptoms; Z62.810 Personal history of physical and sexual abuse in childhood; Z91.85 Personal history of military service
CPT/HCPCS: 36415; 80053; 80305; 80307; 85027; 86780; 93005; 93010; Q0162